=== PATIENT | male | born 1960 | race Caucasian/White ===

== ENCOUNTER 2021-02-28 22:59 | Inpatient (IN) | payer MEDICARE, SELFPAY ==
[2021-02-28 23:00] VITALS: BP 112/66; PULSE 100; RESP 32; TEMP 38; O2SAT 84; BMI 32.1
--- NOTE | 2021-02-28 23:05 | RAD_ITS ---
EXAM: XR CHEST, 1 VIEW CLINICAL INDICATION: sob TECHNIQUE: Frontal view of the chest. This report was created using [employer] report generation technology. COMPARISON: None. FINDINGS: LUNGS AND PLEURAL SPACES: Bilateral multilobar ill-defined airspace disease. No pneumothorax. No effusion. HEART: Unremarkable. Cardiac silhouette not enlarged. MEDIASTINUM: Central airways and mediastinal contour are unremarkable. BONES/JOINTS: Degenerative changes of the spine and acromioclavicular joints. SOFT TISSUES: Unremarkable. RAD/Chest 1 View (Portable) IMPRESSION: Bilateral multilobar pneumonia suspected. Electronically Signed: Aidan Bone MD at 0:19 EST Tel , Service support ,
--- NOTE | 2021-02-28 23:05 | EKG12_ITS ---
Test Reason : SOB Blood Pressure : / mmHG Vent. Rate : 094 BPM Atrial Rate : 094 BPM P-R Int : 168 ms QRS Dur : 090 ms QT Int : 342 ms P-R-T Axes : 029 -13 032 degrees QTc Int : 427 ms Normal sinus rhythm Normal ECG Confirmed by MICHAEL TAVERA, LENY ([id number]), book or script editor KARIN GUZMAN ([id number]) on 03/02/2021 1:28:41 PM Referred By: EDWARD Confirmed By:LENY RODRIGUEZ MD
--- NOTE | 2021-02-28 23:08 | ED.RN ---
pulse ox 82%,placed on 5 lnc to get pulse ox of 94%.
--- NOTE | 2021-02-28 23:13 | PCA ---
PT HAD NO EKG
--- NOTE | 2021-02-28 23:14 | EDS_ITS ---
HPI History of Present Illness Chief Complaint: Shortness of Breath Informant: patient and family Narrative Narrative: Presents increasing dyspnea today. Covid +2 days ago. Symptoms started 4 days ago reported fevers headache chills myalgias. Occasional vomiting diarrhea. Sick contacts with daughters were friend's kids who had Covid over . 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 Nonvaccinated. He reports Covid symptoms back in 2019 prior to testing. History of hypertension, diabetes, hypercholesterolemia, meningioma that is being followed. Remote tobacco history. 2 days ago went to urgent care chest x-ray noted bilateral pneumonia he was started on doxycycline. He got called with Covid results today being positive. Daughter reports she gave him 50 mg of prednisone yesterday and then again today. [facility] Medical History Diabetes Former smoker Hyperlipidemia Hypertension Home Medications bisoprolol-hydrochlorothiazide 1 tab PO DAILY 03/01/21 [History Last Taken Unknown] doxycycline monohydrate 100 mg PO BID 03/01/21 [History Last Taken Unknown] finasteride 5 mg PO DAILY 03/01/21 [History Last Taken Unknown] lisinopril 5 mg PO DAILY 03/01/21 [History Last Taken Unknown] metformin 1,000 mg PO BID 03/01/21 [History Last Taken Unknown] rosuvastatin 10 mg PO QHS 03/01/21 [History Last Taken Unknown] tamsulosin 0.4 mg PO DAILY 03/01/21 [History Last Taken Unknown] Allergy/AdvReac Type Severity Reaction Status Date / Time No Known Allergies Allergy Verified 02/28/21 23:02 Family History (Updated 03/01/21 @ 01:[address] Allan Allred MD) Other Cancer Diabetes Surgical History History of back surgery Hx of inguinal hernia repair Social History Smoking Status: Former smoker ROS ROS ED Constitutional Constitutional ED: Reports chills, fever(s) and sweats Eyes Eyes: Denies change in vision ENT ENT ED: Denies dysphagia or sore throat Cardiovascular Cardiovascular: Denies chest pain, leg edema, palpitations or racing heartbeat Respiratory/Chest Respiratory/Chest: Reports cough and dyspnea; Denies dyspnea on exertion Gastrointestinal Gastrointestinal: Reports diarrhea and nausea; Denies abdominal pain or vomiting Genitourinary Genitourinary ED: Denies dysuria, hematuria or urinary frequency Musculoskeletal Musculoskeletal: Denies back pain, extremity pain or neck pain Integumentary Denies rash or wounds Neurologic Neurologic: Reports headache(s); Denies paresthesias or weakness EXAM Physical Exam Const Vital Signs: 02/28/21 23:00 02/28/21 23:18 02/28/21 23:23 Temperature 100.4 F H Temperature Source Temporal Pulse Rate 100 94 Respiratory Rate 32 H 23 H Respiratory Effort Short of Breath Respiratory Depth Shallow Respiratory Pattern Irregular Blood Pressure 112/66 119/74 Blood Pressure Mean 81 89 Pulse Ox 84 98 99 Oxygen Delivery Method Room Air Nasal Cannula Nasal Cannula Oxygen Flow Rate (L/min) 5 Fraction of Inspired Oxygen (FIO2) 98 99 02/28/21 23:59 Temperature 100.4 F H Temperature Source Temporal Pulse Rate 91 Respiratory Rate 20 H Respiratory Effort Respiratory Depth Respiratory Pattern Blood Pressure 126/74 H Blood Pressure Mean 91 Pulse Ox 96 Oxygen Delivery Method Nasal Cannula Oxygen Flow Rate (L/min) 2 Fraction of Inspired Oxygen (FIO2) Positive well nourished and well developed Constitutional Narrative: Occasional coughing, nontoxic General Appearance ED: well developed and NAD HEENT Reports dry mucous membranes normocephalic and atraumatic Mouth ED: Yes dry mucous membranes Mouth: dry mucous membranes Eyes PERRL, EOMs intact bilaterally and conjunctivae normal General Eye ED: Yes normal appearance of both eyes Neck no lymphadenopathy and supple General: Negative for tenderness Chest Wall Chest: Negative for tenderness Resp normal respiratory effort and normal air movement Effort and Inspection: symmetric chest movement; Negative for respiratory distress Cardio regular rate, regular rhythm and no murmurs Peripheral Pulses: pulses 2+ throughout GI normal to inspection, nondistended, normoactive bowel sounds and non-tender Palpation: Negative for guarding or rebound tenderness present Back/Spine no CVA tenderness and no thoracic nor lumbar tenderness Extremity normal to inspection General Extremety ED: Negative for edema or tenderness General Extremity: Negative for edema Neuro oriented x3 and no sensory deficits noted Sensorium / Orientation: awake and alert Skin no rashes or lesions noted and no wounds MDM MDM MDM Narrative Medical decision making narrative: Patient low-grade fever, respiratory rate 32 on arrival. Sepsis labs were ordered. Reported positive testing from 2 days ago, they are unable to provide documentation. Will retest. Dry mucosal membranes, will give 500 cc fluid bolus. Tylenol ordered. Currently on 5 L oxygen at 95%. Chest x-ray labs are pending at this time. Imaging studies notes multifocal pneumonia changes. Laboratory studies normal white count hemoglobin 13.8 creatinine 1.04. Lymphocytes are low, CRP elevated 118. Lactic acid 2.9. Urine negative for infection. Cultures pending. His rapid Covid returned negative, however positive testing as an outpatient clinically consistent with Covid pneumonia. I did order for PCR testing. He was covered with dexamethasone. Blood glucose 217 in the lab. He is weaned down to 2 L oxygen at rest. Reports worsening symptoms with exertion. He is an antiviral candidate. I discussed with hospitalist Dr. Allred for admission for suspected Covid pneumonia with hypoxemia. Lab Data Attestation: I reviewed the patient's lab results. Labs: Laboratory Results - last 24 hr 02/28/21 02/28/21 02/28/21 23:20 23:20 23:20 WBC 7.9 RBC 4.31 L Hgb 13.8 Hct 39.2 L MCV 91.0 MCH 32.0 MCHC 35.2 RDW Std Deviation 39.4 RDW Coeff of Eh 11.9 Plt Count 187 MPV 11.1 Immature Gran % (Auto) 1.500 H Neut % (Auto) 81.2 H Lymph % (Auto) 10.7 L [place] % (Auto) 6.5 Eos % (Auto) 0.0 Baso % (Auto) 0.1 Absolute Neuts (auto) 6.4 Absolute Lymphs (auto) 0.84 Nucleated RBC % 0 Differential Comment SCANNED PT Cancelled INR Cancelled APTT Cancelled Sodium 134 L Potassium 4.5 Chloride 97 L Carbon Dioxide 29.0 Anion Gap 8 BUN 22 H Creatinine 1.04 Estim Creat Clear Calc 86.72 Est GFR (MDRD) Af Amer 93 Est GFR (MDRD) Non-Af 77 BUN/Creatinine Ratio 21.2 H Glucose 217 H Lactic Acid Calcium 8.5 Total Bilirubin 0.70 AST 47 H ALT 29 Alkaline Phosphatase 78 C-React Prot Ext Range 118.00 H Total Protein 7.3 Albumin 2.7 L Globulin 4.6 H Albumin/Globulin Ratio 0.6 L Urine Color Urine Clarity Urine pH Ur Specific [place] Urine Protein Urine Glucose (UA) Urine Ketones Urine Occult Blood Urine Nitrite Urine Bilirubin Urine Urobilinogen Ur Leukocyte Esterase Urine RBC Urine WBC Ur Squamous Epith Cells Urine Bacteria Urine Mucus 02/28/21 03/01/21 03/01/21 23:20 00:00 00:05 WBC RBC Hgb Hct MCV MCH MCHC RDW Std Deviation RDW Coeff of Eh Plt Count MPV Immature Gran % (Auto) Neut % (Auto) Lymph % (Auto) [place] % (Auto) Eos % (Auto) Baso % (Auto) Absolute Neuts (auto) Absolute Lymphs (auto) Nucleated RBC % Differential Comment PT 12.3 INR 1.0 APTT 31.6 Sodium Potassium Chloride Carbon Dioxide Anion Gap BUN Creatinine Estim Creat Clear Calc Est GFR (MDRD) Af Amer Est GFR (MDRD) Non-Af BUN/Creatinine Ratio Glucose Lactic Acid 2.9 H* Calcium Total Bilirubin AST ALT Alkaline Phosphatase C-React Prot Ext Range Total Protein Albumin Globulin Albumin/Globulin Ratio Urine Color Yellow Urine Clarity Clear Urine pH 5.0 Ur Specific [place] 1.015 Urine Protein 100 H Urine Glucose (UA) Normal Urine Ketones 5 H Urine Occult Blood 50 H Urine Nitrite Negative Urine Bilirubin 1 H Urine Urobilinogen 1 H Ur Leukocyte Esterase Negative Urine RBC 0-5 SEEN Urine WBC 0 SEEN Ur Squamous Epith Cells 0 SEEN Urine Bacteria 1+ Urine Mucus 0 SEEN Radiography Diagnostic Testing: Clinical Impression(s) from Imaging Studies Chest X-Ray 02/28/21 23:05 IMPRESSION: Bilateral multilobar pneumonia suspected. Electronically Signed: Aidan Bone MD at 0:19 EST Tel , Service support , EKG Initial EKG: Attestation: I personally reviewed and interpreted this EKG as follows: Comments: Sinus rhythm 94, no ST changes. Discharge Plan Triage Chief Complaint: Shortness of Breath ED Provider: Ford Falcon Dx/Rx/DC Orders Clinical Impression: Suspected COVID-19 virus infection, Pneumonia, Hypoxemia Primary Care Provider: Clint Horton Disposition Disposition: Acute Care Hospital Discharge Location: Other Acute Care Hospital Discharge Date/Time: 03/01/21 01:27
[2021-02-28 23:18] VITALS: O2SAT 5; O2SAT 98
[2021-02-28 23:23] VITALS: BP 119/74; PULSE 94; RESP 23; O2SAT 99
[2021-02-28 23:31] LABS: Absolute Lymphocyte Count 0.84 X10^3/uL (0.83-4.51); Absolute Neutrophil Count 6.4 X10^3/uL (2.0-7.7); Basophil# 0.01 X10^3/uL; Basophil% 0.1 % (0-1); Hematocrit 39.2 % (40-54); Hemoglobin 13.8 g/dL (13.0-16.5); Lymphocyte # 0.84 X10^3/ul (0.83-4.51); Lymphocyte % 10.7 % (19-41); Mean Corp Hgb Conc 35.2 g/dL (32-36); Mean Platelet Vol. 11.1 fl (6.2-12.0); Monocyte# 0.51 X10^3/uL; Monocyte% 6.5 % (0-10); NRBC Flagged by Analyzer 0 % (0-5); Neutrophil # 6.38 X10^3/uL (2.7-7.7); Neutrophil % 81.2 % (47-70); POSITIVE MORPHOLOGY YES; Platelet Count 187 K/mm3 (150-450); RBC Distribution Width CV 11.9 % (11.6-14.6); RBC Distribution Width SD 39.4 fl (35.1-43.9); Red Blood Count 4.31 M/mm3 (4.6-6.2); White Blood Count 7.9 K/mm3 (4.4-11.0)
[2021-02-28 23:49] LABS: Differential Indicated SCAN CRITERIA MET
[2021-02-28] MEDS: dexAMETHasone 4 MG Tablet 6 MG PO (23:53)
[2021-02-28] MEDS: Acetaminophen 325 MG Tablet 650 MG PO (23:53)
[2021-02-28 23:59] VITALS: BP 126/74; PULSE 91; RESP 20; TEMP 38; O2SAT 96
[2021-02-28 23:59] LABS: ALB/GLOB Ratio 0.6 RATIO (0.9-2.4); AST(SGOT) 47 U/L (15-37); Alanine Aminotransfer ALT/SGPT 29 U/L (16-61); Albumin, Serum 2.7 g/dL (3.2-5.0); Alkaline Phosphatase 78 U/L (45-117); Anion Gap 8 (5-15); BUN 22 mg/dL (7-18); BUN/Creat Ratio 21.2 RATIO (10-20); Calcium,Total 8.5 mg/dL (8.5-10.1); Chloride 97 mmol/L (98-107); Creatinine, Serum 1.04 mg/dL (0.70-1.30); EST Glomerular Filtration Rate 77 mL/min (>60); Est Glom Filt Rate - Afr Amer 93 mL/min (>60); Estimated Creatinine Clearance 86.72 ml/min; Globulin 4.6 g/dL (2.2-4.2); Glucose 217 mg/dL (74-106); Potassium 4.5 mmol/L (3.5-5.1); Protein, Total 7.3 g/dL (6.4-8.2); Sodium Level 134 mmol/L (136-145)
[2021-03-01] VITALS (15 sets, daily range): BP systolic 108–127; BP diastolic 71–83; PULSE 65–83; RESP 14–24; TEMP 35.9–38.2; O2SAT 85–96; BMI 25.4
[2021-03-01 00:01] LABS: Lactic Acid 2.9 mmol/L (0.4-1.9)
[2021-03-01 00:11] LABS: Differential Comment SCANNED
[2021-03-01 00:15] LABS: Mucous, Urine 0 SEEN /hpf (<or=2+); Squamous Epithelial Cells - UA 0 SEEN /hpf (0-5); White Blood Cells 0 SEEN /hpf (0-5)
[2021-03-01 00:18] LABS: Color, Urine Yellow (Yellow); Glucose, Dipstick Normal (Normal); Ketone-Dipstick 5 mg/dl (Negative); Leukocyte Esterase-Dipstick Negative /ul (Negative); Nitrite-Dipstick Negative (Negative); Occult Blood-Urine 50 /ul (Negative); Protein-Dipstick 100 mg/dl (Negative); Specific Gravity, Urine 1.015 (1.002-1.030); Urine Clarity Clear (Clear); Urine Urobilinogen 1 mg/dl (Normal)
[2021-03-01 00:24] LABS: Urine Bilirubin Dipstick 1 mg/dL (Negative)
[2021-03-01 00:25] LABS: Prothrombin Time (Protime)PT. 12.3 SECONDS (11.7-14.9)
[2021-03-01 00:26] LABS: Partial Thromboplast Time 31.6 Seconds (24.1-36.2)
[2021-03-01 00:28] LABS: Bacteria 1+ /hpf (None Seen); Red Blood Cells-Urine 0-5 SEEN /hpf (0-5)
--- NOTE | 2021-03-01 00:37 | PCM.HP.STD ---
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 Associated with symptom is a productive cough with clear and [place] sputum. Further he reports fatigue. He has anorexia on and off. He denies anosmia or dysgeusia. He reports a fever with a temperature of about 102.7 at home. He reports chills. Per family at times patient is not a coherent. He has had malaise oxygen saturation of about 74% at home. He was at an urgent care 2-day before presentation. He was diagnosed with pneumonia and was started on a prednisone; dicyclomine and breathing treatments. A Covid test was done at the urgent care. Twenty-four hours after he went to the urgent care at a positive Covid results was called to patient. Patient is unvaccinated against COVID-19 virus. REPLACED BY [facility] Medical History Diabetes Former smoker Hyperlipidemia Hypertension Home Medications bisoprolol-hydrochlorothiazide 1 tab PO DAILY 03/01/21 [History Last Taken Unknown] doxycycline monohydrate 100 mg PO BID 03/01/21 [History Last Taken Unknown] finasteride 5 mg PO DAILY 03/01/21 [History Last Taken Unknown] lisinopril 5 mg PO DAILY 03/01/21 [History Last Taken Unknown] metformin 1,000 mg PO BID 03/01/21 [History Last Taken Unknown] rosuvastatin 10 mg PO QHS 03/01/21 [History Last Taken Unknown] tamsulosin 0.4 mg PO DAILY 03/01/21 [History Last Taken Unknown] Allergy/AdvReac Type Severity Reaction Status Date / Time No Known Allergies Allergy Verified 02/28/21 23:02 Family History Other Cancer Diabetes Surgical History History of back surgery Hx of inguinal hernia repair Social History Smoking Status: Former smoker ROS ROS Narrative Constitutional: Reports fever, chills, fatigue, anorexia (on and off). Denies change in weight Eyes: Denies blurry vision, change in eye color, change in vision, discharge from eye(s), double vision, erythema, eye pain, loss of vision or other HEENT: Denies abnormal hearing, dysphagia, ear pain, epistaxis, headache(s), hearing loss, nasal congestion, nasal discharge, post nasal drip, sinus pressure, sore throat or other Cardiovascular: Denies chest pain or palpitations. Respiratory/Chest: Reports shortness of breath. Reports productive cough. Reports wheezes. Gastrointestinal: Denies abdominal pain, coffee ground emesis, constipation, diarrhea, dyspepsia, hematemesis, hematochezia, loose stools, melena, nausea, vomiting or other Genitourinary: Denies burning urination, difficulty urinating, dysuria, hematuria, nocturia, urinary frequency, urinary hesitancy, urinary incontinence, urinary urgency or other Musculoskeletal: Denies arthralgias, back pain, joint pain, joint stiffness, joint swelling, myalgias, neck pain or other Neurologic: Reports confusion. Denies abnormal gait, abnormal speech, disequilibrium, dizziness, focal weakness, headache(s), numbness, paresthesias, seizure-like activity, seizures, syncope, tingling, tremor(s) or other Psychiatric: Denies anxiety, depression, homicidal ideation, suicidal ideation or other Endocrinology: Denies change in body appearance, cold intolerance, excessive sweating, heat intolerance, polydipsia, polyuria or other Hematologic/Lymphatic: Denies anemia, easy bleeding, easy bruising, lymphadenopathy or other Integumentary: Denies rashes Allergic/Immunologic: Denies rhinitis, hives, eczema, asthma or other Vital Signs Vital Signs Vital Signs: 02/28/21 23:00 02/28/21 23:18 02/28/21 23:23 Temperature 100.4 F H Temperature Source Temporal Pulse Rate 100 94 Respiratory Rate 32 H 23 H Respiratory Effort Short of Breath Respiratory Depth Shallow Respiratory Pattern Irregular Blood Pressure 112/66 119/74 Blood Pressure Mean 81 89 Pulse Ox 84 98 99 Oxygen Delivery Method Room Air Nasal Cannula Nasal Cannula Oxygen Flow Rate (L/min) 5 Fraction of Inspired Oxygen (FIO2) 98 99 02/28/21 23:59 Temperature 100.4 F H Temperature Source Temporal Pulse Rate 91 Respiratory Rate 20 H Respiratory Effort Respiratory Depth Respiratory Pattern Blood Pressure 126/74 H Blood Pressure Mean 91 Pulse Ox 96 Oxygen Delivery Method Nasal Cannula Oxygen Flow Rate (L/min) 2 Fraction of Inspired Oxygen (FIO2) Weight Weight: 113.398 kg Body Mass Index (BMI) 32.1 Physical Exam Narrative Physical exam: General: Well-nourished, well-developed. Head: Normocephalic, atraumatic, no tenderness Eyes: PERRLA, EOMI ENT, no trauma, moist mucous membranes, no rhinorrhea Neck: Nontender, full range of motion CVS: Regular rate and rhythm. S1-S2 present. No murmur, gallop or rub. Respiratory : crackles bilaterally, chest wall nontender, no wheezing Abdomen: Soft, nontender, nondistended, normal bowel sounds, no masses : Deferred Back: Nontender, no CVA tenderness, no midline spinal tenderness, deformities, step-offs Extremities: Nontender full range of motion, no trauma Skin: Normal color, no trauma, abrasions Neuro: Alert, oriented, cranial nerves II through XII grossly intact. Psychiatry: Normal mood. Normal affect. Not depressed. Not anxious. Results Lab / Micro Data Result Diagrams: 02/28/21 23:20 02/28/21 23:20 Labs: Laboratory Results - last 24 hr 02/28/21 23:20: WBC 7.9, RBC 4.31 L, Hgb 13.8, Hct 39.2 L, MCV 91.0, MCH 32.0, MCHC 35.2, RDW Std Deviation 39.4, RDW Coeff of Eh 11.9, Plt Count 187, MPV 11.1, Immature Gran % (Auto) 1.500 H, Neut % (Auto) 81.2 H, Lymph % (Auto) 10.7 L, [place] % (Auto) 6.5, Eos % (Auto) 0.0, Baso % (Auto) 0.1, Absolute Neuts (auto) 6.4, Absolute Lymphs (auto) 0.84, Nucleated RBC % 0, Differential Comment SCANNED 02/28/21 23:20: PT Cancelled, INR Cancelled, APTT Cancelled 02/28/21 23:20: Sodium 134 L, Potassium 4.5, Chloride 97 L, Carbon Dioxide 29.0, Anion Gap 8, BUN 22 H, Creatinine 1.04, Estim Creat Clear Calc 86.72, Est GFR (MDRD) Af Amer 93, Est GFR (MDRD) Non-Af 77, BUN/Creatinine Ratio 21.2 H, Glucose 217 H, Calcium 8.5, Total Bilirubin 0.70, AST 47 H, ALT 29, Alkaline Phosphatase 78, C-React Prot Ext Range 118.00 H, Total Protein 7.3, Albumin 2.7 L, Globulin 4.6 H, Albumin/Globulin Ratio 0.6 L 02/28/21 23:20: Lactic Acid 2.9 H* 03/01/21 00:00: PT 12.3, INR 1.0, APTT 31.6 03/01/21 00:05: Urine Color Yellow, Urine Clarity Clear, Urine pH 5.0, Ur Specific [place] 1.015, Urine Protein 100 H, Urine Glucose (UA) Normal, Urine Ketones 5 H, Urine Occult Blood 50 H, Urine Nitrite Negative, Urine Bilirubin 1 H, Urine Urobilinogen 1 H, Ur Leukocyte Esterase Negative, Urine RBC 0-5 SEEN, Urine WBC 0 SEEN, Ur Squamous Epith Cells 0 SEEN, Urine Bacteria 1+, Urine Mucus 0 SEEN Micro: Microbiology 02/28/21 23:34 Nasal Secretion SARS-CoV-2 Antigen (Rapid) - Final Radiology Impression Chest X-Ray 02/28/21 23:05 IMPRESSION: Bilateral multilobar pneumonia suspected. Electronically Signed: Aidan Bone MD at 0:19 EST Tel , Service support , Assessment & Plan Assessment/Plan (1) Acute respiratory failure due to COVID-19: PLAN: Acute hypoxemic respiratory failure secondary to SARS- COV 2 With oxygen saturation of 74% at home. Requiring supplemental oxygen in the emergency department. With tachypnea with highest respiratory rate of 32 at the emergency department. Will stop Home prednisone that was recently started. Received Decadron at the emergency department. Decadron continued. We will get a procalcitonin. Rapid Covid antigen at the emergency department was negative. So PCR Covid test was ordered at the ED. Review of community records show that on 02/26/2021 Covid PCR was done which returned positive on 02/27/2021. Creatinine clearance is more than 30. AST is mildly elevated at 47. Liver biochemistry is appropriate to start remdesivir. Remdesivir ordered. Supplemental oxygenation continued. And has the precautions ordered. Chest x-ray interpreted by myself and radiology showed bilateral multilobar pneumonia. Tylenol for fever Mucinex ordered Review of labs showed normal white counts but with bandemia of 1.5%; neutrophilia of 81.2%; and lymphopenia of 10.7%. Noted to have mild hyponatremia likely from pulmonary disease. Trend CBC and CMP Lactic acidosis Lactic acid of 2.9 likely secondary to Metformin use and hypoxemia. Trend. Cover treatment as above. Diabetes mellitus Patient with hyperglycemia on presentation Home Metformin held. Accu-Chek QA CHS with correction scale insulin ordered. Basal insulin ordered. Lisinopril continued. Hypertension Blood pressure is not within goal Lisinopril; beta-blockers and hydrochlorothiazide continued continued. Trend blood pressure and adjust blood pressure medications. Hyperlipidemia Rosuvastatin continued DVT prophylaxis: Subcutaneous Lovenox ordered Charges/Coding Visit Charges Inpatient E&M: 96907 Init Hosp L3
[2021-03-01 01:56] LABS: Bedside Glucose 188 mg/dL (70-110)
--- NOTE | 2021-03-01 01:56 | NURSING ---
PT'S DTR ABRAHAN'S UPDATED ON PT'S STAUTUS/ADMISSION.
[2021-03-01 02:01] LABS: Procalcitonin 0.14 ng/mL (0.00-0.09)
[2021-03-01 02:17] LABS: Probe Check PASS; Specimen Processing Control PASS
[2021-03-01] MEDS: guaiFENesin 1,200 MG Tablet 1200 MG PO ×2 (02:32→22:16)
[2021-03-01 03:27] LABS: Reflex Lactate? Y
[2021-03-01 04:04] LABS: Absolute Neutrophil Count 6.2 X10^3/uL (2.0-7.7); Basophil# 0.01 X10^3/uL; Basophil% 0.1 % (0-1); Hematocrit 35.7 % (40-54); Hemoglobin 12.6 g/dL (13.0-16.5); Lymphocyte % 8.1 % (19-41); Mean Corp Hgb Conc 35.3 g/dL (32-36); Mean Corpuscular Hgb 31.9 pg (27.0-32.0); Mean Corpuscular Volume 90.4 fL (80-94); Mean Platelet Vol. 10.6 fl (6.2-12.0); Monocyte# 0.51 X10^3/uL; Monocyte% 6.9 % (0-10); NRBC Flagged by Analyzer 0 % (0-5); Neutrophil # 6.23 X10^3/uL (2.7-7.7); Neutrophil % 84.2 % (47-70); POSITIVE DIFFERENTIAL YES; POSITIVE MORPHOLOGY YES; Platelet Count 162 K/mm3 (150-450); RBC Distribution Width CV 11.6 % (11.6-14.6); RBC Distribution Width SD 38.6 fl (35.1-43.9); Red Blood Count 3.95 M/mm3 (4.6-6.2); White Blood Count 7.4 K/mm3 (4.4-11.0)
[2021-03-01 04:20] LABS: Differential Indicated SCAN CRITERIA MET
[2021-03-01 04:30] LABS: ALB/GLOB Ratio 0.6 RATIO (0.9-2.4); AST(SGOT) 39 U/L (15-37); Alanine Aminotransfer ALT/SGPT 27 U/L (16-61); Albumin, Serum 2.4 g/dL (3.2-5.0); Alkaline Phosphatase 68 U/L (45-117); Anion Gap 9 (5-15); BUN 20 mg/dL (7-18); BUN/Creat Ratio 25.2 RATIO (10-20); Calcium,Total 7.5 mg/dL (8.5-10.1); Chloride 100 mmol/L (98-107); Creatinine, Serum 0.79 mg/dL (0.70-1.30); EST Glomerular Filtration Rate 106 mL/min (>60); Est Glom Filt Rate - Afr Amer 128 mL/min (>60); Estimated Creatinine Clearance 114.17 ml/min; Globulin 4.1 g/dL (2.2-4.2); Glucose 247 mg/dL (74-106); Potassium 4.2 mmol/L (3.5-5.1); Protein, Total 6.5 g/dL (6.4-8.2); Sodium Level 135 mmol/L (136-145)
[2021-03-01 04:35] LABS: Atypical Lymphocyte RARE %; Differential Comment SCANNED
[2021-03-01] MEDS: Acetaminophen 325 MG Tablet 650 MG PO (06:27)
--- NOTE | 2021-03-01 08:32 | PCS.PANDOC ---
PANDEMIC DOCUMENTATION INITIATED: Date: 11/06/2020 Time: 190
[2021-03-01] MEDS: Tamsulosin HCl 0.4 MG Capsule PO (08:33)
[2021-03-01] MEDS: hydroCHLOROthiazide 6.25mg TAB 6.25 MG PO (08:33)
[2021-03-01] MEDS: Lisinopril 5 MG Tablet PO (08:33)
[2021-03-01] MEDS: Bisoprolol Fumarate 5 MG Tablet PO (08:33)
[2021-03-01] MEDS: dexAMETHasone 2 MG TABLET 6 MG PO (08:34)
[2021-03-01] MEDS: 0.9% Saline Lock 10 ML Syringe IV ×2 (08:34→22:16)
[2021-03-01] MEDS: Finasteride 5 MG Tablet PO (08:34)
[2021-03-01] MEDS: Enoxaparin 30 MG/0.3 ML Syringe SC ×2 (08:34→22:16)
[2021-03-01] MEDS: Insulin Lispro 100 UNIT/ML INSULN.PEN SC ×4 (08:42→22:19)
[2021-03-01 08:50] LABS: Bedside Glucose 300 mg/dL (70-110)
[2021-03-01 12:00] LABS: Bedside Glucose 325 mg/dL (70-110)
[2021-03-01 16:10] LABS: Bedside Glucose 309 mg/dL (70-110)
--- NOTE | 2021-03-01 16:56 | PN.HOSP_ITS ---
Subjective Subjective Follow-up for acute respiratory failure/acute COVID-19 pneumonia: Patient was seen and examined. He is currently on 3 L of oxygen. Denied any fever chills or diarrhea. Objective Data Objective Data Vital Signs: Vital Signs Temp Pulse Resp BP Pulse Ox 97 F L 73 20 H 113/79 94 03/01/21 16:01 03/01/21 16:01 03/01/21 16:01 03/01/21 16:01 03/01/21 16:01 Oxygen Flow Rate (L/min) 3 Oxygen Delivery Method Nasal Cannula Weight: 89.7 kg Body Mass Index (BMI) 25.4 Intake & Output: Intake and Output for Last 24 Hours 02/27/21 02/28/21 03/01/21 23:59 23:59 23:59 Intake Total 1386 / 1386 Balance 1386 / 1386 Medical Nutrition Assessment Dietitian: Malnutrition Criteria Met Start: 03/01/21 15:00 Freq: Status: Active Protocol: Document 03/01/21 15:00 RMA (Rec: 03/01/21 15:00 RMA [id number]) Nutrition Malnutrition Evidence of Malnutrition Exists Yes Malnutrition (severe): Acute Illness/Injury Evidenced By Suboptimal Energy Intake ( Severe),Weight Loss (Severe) Clinical Problem Acute Disease or Injury Related Malnutrition Etiology Severe protein-calorie malnutrition in the context of acute illness 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 Status Active Problem Recommendation Dietitian Recommendations/Changes Will change diet to 2000 calorie; consistent carbohydrate. Will d/c ensure enlive w/ medpass. Will add 120ml glucerna shake TID w/ meals. Liberalize diet and add ONS as needed to prevent further wt loss if PO does not improve at meals. Lab / Micro Data Result Diagrams: 03/01/21 03:54 03/01/21 03:54 Labs: Laboratory Results - last 24 hr 02/28/21 23:20: WBC 7.9, RBC 4.31 L, Hgb 13.8, Hct 39.2 L, MCV 91.0, MCH 32.0, MCHC 35.2, RDW Std Deviation 39.4, RDW Coeff of Eh 11.9, Plt Count 187, MPV 11 .1, Immature Gran % (Auto) 1.500 H, Neut % (Auto) 81.2 H, Lymph % (Auto) 10.7 L, [place] % (Auto) 6.5, Eos % (Auto) 0.0, Baso % (Auto) 0.1, Absolute Neuts (auto) 6.4, Absolute Lymphs (auto) 0.84, Nucleated RBC % 0, Differential Comment SCANNED 02/28/21 23:20: PT Cancelled, INR Cancelled, APTT Cancelled 02/28/21 23:20: Sodium 134 L, Potassium 4.5, Chloride 97 L, Carbon Dioxide 29.0, Anion Gap 8, BUN 22 H, Creatinine 1.04, Estim Creat Clear Calc 86.72, Est GFR (MDRD) Af Amer 93, Est GFR (MDRD) Non-Af 77, BUN/Creatinine Ratio 21.2 H, Glucose 217 H, Calcium 8.5, Total Bilirubin 0.70, AST 47 H, ALT 29, Alkaline Phosphatase 78, C-React Prot Ext Range 118.00 H, Total Protein 7.3, Albumin 2.7 L, Globulin 4.6 H, Albumin/Globulin Ratio 0.6 L 02/28/21 23:20: Lactic Acid 2.9 H* 02/28/21 23:20: Procalcitonin 0.14 H 03/01/21 00:00: PT 12.3, INR 1.0, APTT 31.6 03/01/21 00:05: Urine Color Yellow, Urine Clarity Clear, Urine pH 5.0, Ur Specific [place] 1.015, Urine Protein 100 H, Urine Glucose (UA) Normal, Urine Ketones 5 H, Urine Occult Blood 50 H, Urine Nitrite Negative, Urine Bilirubin 1 H, Urine Urobilinogen 1 H, Ur Leukocyte Esterase Negative, Urine RBC 0-5 SEEN, Urine WBC 0 SEEN, Ur Squamous Epith Cells 0 SEEN, Urine Bacteria 1+, Urine Mucus 0 SEEN 03/01/21 00:35: COVID-19 (DANIEL) Positive 03/01/21 01:43: POC Glucose 188 H 03/01/21 03:54: WBC 7.4, RBC 3.95 L, Hgb 12.6 L, Hct 35.7 L, MCV 90.4, MCH 31.9, MCHC 35.3, RDW Std Deviation 38.6, RDW Coeff of Eh 11.6, Plt Count 162, MPV 10.6, Immature Gran % (Auto) 0.700, Neut % (Auto) 84.2 H, Lymph % (Auto) 8.1 L, [place] % (Auto) 6.9, Eos % (Auto) 0.0, Baso % (Auto) 0.1, Absolute Neuts (auto) 6.2, Absolute Lymphs (auto) 0.60 L, Nucleated RBC % 0, Differential Comment SCANNED, Atypical Lymphocytes RARE 03/01/21 03:54: Sodium 135 L, Potassium 4.2, Chloride 100, Carbon Dioxide 26.0, Anion Gap 9, BUN 20 H, Creatinine 0.79, Estim Creat Clear Calc 114.17, Est GFR (MDRD) Af Amer 128, Est GFR (MDRD) Non-Af 106, BUN/Creatinine Ratio 25.2 H, Glucose 247 H, Calcium 7.5 L, Total Bilirubin 0.70, AST 39 H, ALT 27, Alkaline Phosphatase 68, Total Protein 6.5, Albumin 2.4 L, Globulin 4.1, Albumin/Globulin Ratio 0.6 L 03/01/21 03:54: Lactic Acid 1.0 03/01/21 08:25: POC Glucose 300 H 03/01/21 11:44: POC Glucose 325 H 03/01/21 15:58: POC Glucose 309 H Micro: Microbiology 02/28/21 23:34 Nasal Secretion SARS-CoV-2 Antigen (Rapid) - Final Radiography Diagnostic Testing: Radiology Impression Chest X-Ray 02/28/21 23:05 IMPRESSION: Bilateral multilobar pneumonia suspected. Electronically Signed: Aidan Bone MD at 0:19 EST Tel , Service support , Physical Exam Narrative Physical exam: General: Alert, Oriented x3, Cooperative, No apparent distress, Well developed HEENT: Atraumatic Oral: Moist Mucosa Neck: Supple Lungs: Diminished to auscultation Cardiovascular: HS I+II, regular, no murmurs Abdomen: Bowel Sounds Present, Soft, Non Tender Assessment & Plan Assessment/Plan (1) Acute respiratory failure with hypoxia: (2) Pneumonia due to COVID-19 virus: (3) Lactic acidosis: PLAN: 1. Acute hypoxic respiratory failure secondary to acute COVID-19 pneumonia Patient is currently on 3 L of oxygen He is unvaccinated Continue on Decadron and remdesivir 2. Lactic acidosis secondary to #1 3. Type II DM, blood sugars uncontrolled, continue to hold Metformin Continue on insulin 20 units nightly with insulin sliding scale 4. Hypertension, controlled continue on hydrochlorothiazide, lisinopril Charges/Coding Visit Charges Inpatient E&M: 49205 Subs Hosp L2
[2021-03-01] MEDS: Atorvastatin Calcium 20 MG Tablet PO (22:16)
[2021-03-01 22:35] LABS: Bedside Glucose 279 mg/dL (70-110)
[2021-03-02] VITALS (17 sets, daily range): BP systolic 108–126; BP diastolic 64–79; PULSE 54–84; RESP 16–23; TEMP 35.7–36.3; O2SAT 85–97
[2021-03-02] MEDS: 0.9% Saline Lock 10 ML Syringe IV ×3 (01:44→22:19)
[2021-03-02] MEDS: Acetaminophen 325 MG Tablet 650 MG PO ×2 (03:26→22:19)
[2021-03-02] MEDS: Insulin Lispro 100 UNIT/ML INSULN.PEN SC ×4 (07:03→22:30)
[2021-03-02 07:14] LABS: Absolute Lymphocyte Count 0.97 X10^3/uL (0.83-4.51); Absolute Neutrophil Count 7.4 X10^3/uL (2.0-7.7); Basophil# 0.03 X10^3/uL; Basophil% 0.3 % (0-1); Eosinophil# 0.24 X10^3/uL; Eosinophils% 2.5 % (0-5); Hematocrit 38.2 % (40-54); Lymphocyte # 0.97 X10^3/ul (0.83-4.51); Lymphocyte % 10.1 % (19-41); Mean Corpuscular Hgb 31.6 pg (27.0-32.0); Mean Corpuscular Volume 92.7 fL (80-94); Mean Platelet Vol. 11.1 fl (6.2-12.0); Monocyte# 0.91 X10^3/uL; Monocyte% 9.5 % (0-10); NRBC Flagged by Analyzer 0 % (0-5); Neutrophil # 7.35 X10^3/uL (2.7-7.7); Neutrophil % 76.6 % (47-70); POSITIVE MORPHOLOGY YES; Platelet Count 196 K/mm3 (150-450); RBC Distribution Width CV 11.7 % (11.6-14.6); RBC Distribution Width SD 39.7 fl (35.1-43.9); Red Blood Count 4.12 M/mm3 (4.6-6.2); White Blood Count 9.6 K/mm3 (4.4-11.0)
[2021-03-02 07:25] LABS: Differential Indicated SCAN CRITERIA MET
[2021-03-02 07:25] LABS: Bedside Glucose 219 mg/dL (70-110)
[2021-03-02 07:43] LABS: ALB/GLOB Ratio 0.5 RATIO (0.9-2.4); AST(SGOT) 27 U/L (15-37); Alanine Aminotransfer ALT/SGPT 27 U/L (16-61); Albumin, Serum 2.2 g/dL (3.2-5.0); Alkaline Phosphatase 65 U/L (45-117); Anion Gap 5 (5-15); BUN 28 mg/dL (7-18); BUN/Creat Ratio 36.7 RATIO (10-20); Calcium,Total 7.9 mg/dL (8.5-10.1); Chloride 104 mmol/L (98-107); Creatinine, Serum 0.76 mg/dL (0.70-1.30); EST Glomerular Filtration Rate 111 mL/min (>60); Est Glom Filt Rate - Afr Amer 134 mL/min (>60); Estimated Creatinine Clearance 118.67 ml/min; Globulin 4.1 g/dL (2.2-4.2); Glucose 226 mg/dL (74-106); Potassium 4.5 mmol/L (3.5-5.1); Protein, Total 6.3 g/dL (6.4-8.2); Sodium Level 138 mmol/L (136-145)
[2021-03-02 07:51] LABS: Reactive Lymphocyte 1+
[2021-03-02] MEDS: guaiFENesin 1,200 MG Tablet 1200 MG PO ×2 (09:51→22:18)
[2021-03-02] MEDS: dexAMETHasone 2 MG TABLET 6 MG PO (09:51)
[2021-03-02] MEDS: Tamsulosin HCl 0.4 MG Capsule PO (09:51)
[2021-03-02] MEDS: Finasteride 5 MG Tablet PO (09:52)
[2021-03-02] MEDS: Bisoprolol Fumarate 5 MG Tablet PO (09:52)
[2021-03-02] MEDS: Lisinopril 5 MG Tablet PO (09:52)
[2021-03-02] MEDS: hydroCHLOROthiazide 6.25mg TAB 6.25 MG PO (09:52)
[2021-03-02] MEDS: Enoxaparin 30 MG/0.3 ML Syringe SC ×2 (09:52→22:18)
--- NOTE | 2021-03-02 10:15 | CASEMGMT ---
EMELY TAVAREZ called patient in room for initial transition planning/care coordination assessment. RN DAYSI introduced self and role at [facility]. Patient lying in bed, alert and oriented. Patient willing to participate in assessment and is able to answer all questions appropriately. Care providers, pharmacy, and demographics verified. Patient wishes to discharge home, denies need for home health at this time. Patient states he has no further needs or concerns at this time. CM to follow for discharge planning needs that may arise. PCP: [facility] Specialists: none [facility] Insurance: Uninsured Covid Prescription Benefit: none Living Will/HPOA: none LNOK: daughter Living Arrangements: Patient lives with daughter and her family that have been staying with him for 2 years. Patient lives in a 2 story home. Patient states he is independent and able to ambulate stairs. Daughter and granddaughter were sick with covid 2-3 weeks ago. Transportation: self/daughter DME/HHC: Patient states she has shower chair, raised toilet, cane, walker, and grab bars. Patient states he has no preferences for DME. Will monitor for home oxygen Disposition Plan: Patient to discharge home with family support and follow-up plans in place. Marisol HAWK, RN, CM
--- NOTE | 2021-03-02 10:26 | CASEMGMT ---
Green sheet on chart for home oxygen, if pt qualifies. John HAN CM
--- NOTE | 2021-03-02 10:58 | NURSING ---
pt walked to bathroom, spo2 dropped to 84% on 5L. Increased O2 to 13L to recover to 90%. Decreased O2 to 7L NC satting 91-92%.
[2021-03-02 11:05] LABS: Bedside Glucose 312 mg/dL (70-110)
--- NOTE | 2021-03-02 12:45 | CASEMGMT ---
SW spoke with patient as he is self pay. Patient states he is doing fine paying for medications. He has a PCP that he sees regularly. He denied need for any resources. SW did ask if he would need O2 at discharge would the cost of $160 per month be affordable. Patient said that is manageable. Ni Carpenter [employer]OPE W[employer]A
--- NOTE | 2021-03-02 15:31 | PN.HOSP_ITS ---
Subjective Subjective Follow-up for acute respiratory failure/acute COVID-19 pneumonia: Patient was seen and examined. He is currently on 7 L of oxygen. Denies any new complaints Objective Data Objective Data Vital Signs: Vital Signs Temp Pulse Resp BP Pulse Ox 97.3 F L 70 16 108/73 95 03/02/21 14:10 03/02/21 15:00 03/02/21 14:10 03/02/21 14:10 03/02/21 14:10 Oxygen Flow Rate (L/min) 7 Oxygen Delivery Method Nasal Cannula Weight: 89.7 kg Body Mass Index (BMI) 25.4 Intake & Output: Intake and Output for Last 24 Hours 02/28/21 03/01/21 03/02/21 23:59 23:59 23:59 Intake Total 1806 / 2106 1270 / 1270 Output Total 350 / 350 Balance 1806 / 2106 920 / 920 Medical Nutrition Assessment Dietitian: Malnutrition Criteria Met Start: 03/01/21 15:00 Freq: Status: Active Protocol: Document 03/01/21 15:00 RMA (Rec: 03/01/21 15:00 RMA [id number]) Nutrition Malnutrition Evidence of Malnutrition Exists Yes Malnutrition (severe): Acute Illness/Injury Evidenced By Suboptimal Energy Intake ( Severe),Weight Loss (Severe) Clinical Problem Acute Disease or Injury Related Malnutrition Etiology Severe protein-calorie malnutrition in the context of acute illness related to poor appetite 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 Status Active Problem Recommendation Dietitian Recommendations/Changes Will change diet to 2000 calorie; consistent carbohydrate. Will d/c ensure enlive w/ medpass. Will add 120ml glucerna shake TID w/ meals. Liberalize diet and add ONS as needed to prevent further wt loss if PO does not improve at meals. Lab / Micro Data Result Diagrams: 03/02/21 06:25 03/02/21 06:25 Labs: Laboratory Results - last 24 hr 03/01/21 15:58: POC Glucose 309 H 03/01/21 22:12: POC Glucose 279 H 03/02/21 06:25: WBC 9.6, RBC 4.12 L, Hgb 13.0, Hct 38.2 L, MCV 92.7, MCH 31.6, MCHC 34.0, RDW Std Deviation 39.7, RDW Coeff of Eh 11.7, Plt Count 196, MPV 11.1, Immature Gran % (Auto) 1.000 H, Neut % (Auto) 76.6 H, Lymph % (Auto) 10.1 L, [place] % (Auto) 9.5, Eos % (Auto) 2.5, Baso % (Auto) 0.3, Absolute Neuts (auto) 7.4, Absolute Lymphs (auto) 0.97, Nucleated RBC % 0, Reactive Lymphocytes 1+ 03/02/21 06:25: Sodium 138, Potassium 4.5, Chloride 104, Carbon Dioxide 29.0, Anion Gap 5, BUN 28 H, Creatinine 0.76, Estim Creat Clear Calc 118.67, Est GFR (MDRD) Af Amer 134, Est GFR (MDRD) Non-Af 111, BUN/Creatinine Ratio 36.7 H, Glucose 226 H, Calcium 7.9 L, Total Bilirubin 0.50, AST 27, ALT 27, Alkaline Phosphatase 65, Total Protein 6.3 L, Albumin 2.2 L, Globulin 4.1, Albumin/Globulin Ratio 0.5 L 03/02/21 07:01: POC Glucose 219 H 03/02/21 10:55: POC Glucose 312 H Micro: Microbiology 02/28/21 23:32 Blood Culture (Wb) - Left Hand Blood Culture - Preliminary No growth in 48 hours. 02/28/21 23:20 Blood Culture (Wb) - Anticubital Left Blood Culture - Preliminary No growth in 48 hours. 03/02/21 10:52 Urine, Random Streptococcus pneumoniae Antigen (M - Final 03/02/21 10:52 Urine, Clean Catch Legionella Antigen - Final 03/01/21 00:05 Urine, Clean Catch Urine Culture - Preliminary Culture exhibits no growth. 02/28/21 23:34 Nasal Secretion SARS-CoV-2 Antigen (Rapid) - Final Physical Exam Narrative Physical exam: General: Alert, Oriented x3, Cooperative, No apparent distress, 7 L of oxygen HEENT: Atraumatic Oral: Moist Mucosa Neck: Supple Lungs: Diminished to auscultation Cardiovascular: HS I+II, regular, no murmurs Abdomen: Bowel Sounds Present, Soft, Non Tender Assessment & Plan Assessment/Plan (1) Acute respiratory failure with hypoxia: (2) Pneumonia due to COVID-19 virus: (3) Lactic acidosis: PLAN: 1. Acute hypoxic respiratory failure secondary to acute COVID-19 pneumonia Patient is currently on 7 L of oxygen He is unvaccinated Continue on Decadron and remdesivir Trial of Lasix 40 mg IV x1 2. Lactic acidosis secondary to #1 3. Type II DM, blood sugars uncontrolled, continue to hold Metformin Continue on insulin 20 units nightly with insulin sliding scale 4. 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 Hypertension, controlled continue on hydrochlorothiazide, lisinopril Charges/Coding Visit Charges Inpatient E&M: 55480 Subs Hosp L3
[2021-03-02 16:55] LABS: Bedside Glucose 339 mg/dL (70-110)
[2021-03-02] MEDS: Furosemide 40 MG/4 ML Vial IV (18:04)
[2021-03-02] MEDS: Atorvastatin Calcium 20 MG Tablet PO (22:18)
[2021-03-02 23:25] LABS: Bedside Glucose 375 mg/dL (70-110)
[2021-03-03] VITALS (7 sets, daily range): BP systolic 111–126; BP diastolic 72–81; PULSE 44–71; RESP 18–20; TEMP 35.8–37.1; O2SAT 92–96
[2021-03-03 07:37] LABS: Absolute Lymphocyte Count 1.19 X10^3/uL (0.83-4.51); Absolute Neutrophil Count 8.8 X10^3/uL (2.0-7.7); Basophil# 0.03 X10^3/uL; Basophil% 0.3 % (0-1); Hematocrit 39.4 % (40-54); Hemoglobin 13.5 g/dL (13.0-16.5); Lymphocyte # 1.19 X10^3/ul (0.83-4.51); Mean Corp Hgb Conc 34.3 g/dL (32-36); Mean Corpuscular Hgb 31.5 pg (27.0-32.0); Mean Corpuscular Volume 92.1 fL (80-94); Mean Platelet Vol. 11.1 fl (6.2-12.0); Monocyte# 0.71 X10^3/uL; Monocyte% 6.5 % (0-10); NRBC Flagged by Analyzer 0 % (0-5); Neutrophil # 8.78 X10^3/uL (2.7-7.7); POSITIVE MORPHOLOGY YES; Platelet Count 223 K/mm3 (150-450); RBC Distribution Width CV 11.6 % (11.6-14.6); RBC Distribution Width SD 39.2 fl (35.1-43.9); Red Blood Count 4.28 M/mm3 (4.6-6.2); White Blood Count 10.8 K/mm3 (4.4-11.0)
[2021-03-03 08:18] LABS: ALB/GLOB Ratio 0.5 RATIO (0.9-2.4); AST(SGOT) 22 U/L (15-37); Alanine Aminotransfer ALT/SGPT 29 U/L (16-61); Albumin, Serum 2.2 g/dL (3.2-5.0); Alkaline Phosphatase 65 U/L (45-117); Anion Gap 7 (5-15); BUN 32 mg/dL (7-18); BUN/Creat Ratio 43.5 RATIO (10-20); Chloride 103 mmol/L (98-107); Creatinine, Serum 0.74 mg/dL (0.70-1.30); EST Glomerular Filtration Rate 115 mL/min (>60); Est Glom Filt Rate - Afr Amer 139 mL/min (>60); Estimated Creatinine Clearance 121.88 ml/min; Globulin 4.1 g/dL (2.2-4.2); Glucose 242 mg/dL (74-106); Potassium 4.1 mmol/L (3.5-5.1); Protein, Total 6.3 g/dL (6.4-8.2); Sodium Level 139 mmol/L (136-145)
[2021-03-03 08:20] LABS: Differential Indicated SCAN CRITERIA MET
[2021-03-03] MEDS: Insulin Lispro 100 UNIT/ML INSULN.PEN SC ×4 (09:11→21:45)
[2021-03-03] MEDS: Bisoprolol Fumarate 5 MG Tablet PO (09:12)
[2021-03-03] MEDS: dexAMETHasone 2 MG TABLET 6 MG PO (09:12)
[2021-03-03] MEDS: Tamsulosin HCl 0.4 MG Capsule PO (09:12)
[2021-03-03] MEDS: Finasteride 5 MG Tablet PO (09:12)
[2021-03-03] MEDS: Lisinopril 5 MG Tablet PO (09:12)
[2021-03-03] MEDS: Enoxaparin 30 MG/0.3 ML Syringe SC ×2 (09:12→21:49)
[2021-03-03] MEDS: guaiFENesin 1,200 MG Tablet 1200 MG PO ×2 (09:12→21:47)
[2021-03-03 09:56] LABS: Bedside Glucose 186 mg/dL (70-110)
--- NOTE | 2021-03-03 10:01 | PCM.PN.HOSP ---
Subjective Subjective Follow-up for acute respiratory failure/acute COVID-19 pneumonia: Patient was seen and examined. He is currently on 13 L of oxygen. Denies any new complaints Objective Data Objective Data Vital Signs: Vital Signs Temp Pulse Resp BP Pulse Ox 97.9 F 66 18 111/72 92 03/03/21 09:04 03/03/21 09:04 03/03/21 09:04 03/03/21 09:04 03/03/21 09:04 Oxygen Flow Rate (L/min) 13 Oxygen Delivery Method Airvo Weight: 89.7 kg Body Mass Index (BMI) 25.4 Intake & Output: Intake and Output for Last 24 Hours 03/01/21 03/02/21 03/03/21 23:59 23:59 23:59 Intake Total 1806 / 2106 1989 / 0 750 / 750 Output Total 350 / 350 Balance 180 / 2106 1640 / 1940 750 / 750 Medical Nutrition Assessment Dietitian: Malnutrition Criteria Met Start: 03/01/21 15:00 Freq: Status: Active Protocol: Document 03/01/21 15:00 RMA (Rec: 03/01/21 15:00 RMA [id number]) Nutrition Malnutrition Evidence of Malnutrition Exists Yes Malnutrition (severe): Acute Illness/Injury Evidenced By Suboptimal Energy Intake ( Severe),Weight Loss (Severe) Clinical Problem Acute Disease or Injury Related Malnutrition Etiology Severe protein-calorie malnutrition in the context of acute illness related to poor appetite and 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 Status Active Problem Recommendation Dietitian Recommendations/Changes Will change diet to 2000 calorie; consistent carbohydrate. Will d/c ensure enlive w/ medpass. Will add 120ml glucerna shake TID w/ meals. Liberalize diet and add ONS as needed to prevent further wt loss if PO does not improve at meals. Lab / Micro Data Result Diagrams: 03/03/21 06:34 03/03/21 06:34 Labs: Laboratory Results - last 24 hr 03/02/21 10:55: POC Glucose 312 H 03/02/21 16:30: POC Glucose 339 H 03/02/21 22:29: POC Glucose 375 H 03/03/21 06:34: WBC 10.8, RBC 4.28 L, Hgb 13.5, Hct 39.4 L, MCV 92.1, MCH 31.5, MCHC 34.3, RDW Std Deviation 39.2, RDW Coeff of He 11.6, Plt Count 223, MPV 11.1, Immature Gran % (Auto) 1.200 H, Neut % (Auto) 81.0 H, Lymph % (Auto) 11.0 L, [place] % (Auto) 6.5, Eos % (Auto) 0.0, Baso % (Auto) 0.3, Absolute Neuts (auto) 8.8 H, Absolute Lymphs (auto) 1.19, Nucleated RBC % 0 03/03/21 06:34: Sodium 139, Potassium 4.1, Chloride 103, Carbon Dioxide 29.0, Anion Gap 7, BUN 32 H, Creatinine 0.74, Estim Creat Clear Calc 121.88, Est GFR (MDRD) Af Amer 139, Est GFR (MDRD) Non-Af 115, BUN/Creatinine Ratio 43.5 H, Glucose 242 H, Calcium 8.0 L, Total Bilirubin 0.50, AST 22, ALT 29, Alkaline Phosphatase 65, Total Protein 6.3 L, Albumin 2.2 L, Globulin 4.1, Albumin/Globulin Ratio 0.5 L 03/03/21 09:03: POC Glucose 186 H Micro: Microbiology 03/01/21 00:05 Urine, Clean Catch Urine Culture - Final Culture exhibits no growth. 02/28/21 23:32 Blood Culture (Wb) - Left Hand Blood Culture - Preliminary No growth in 48 hours. 02/28/21 23:20 Blood Culture (Wb) - Anticubital Left Blood Culture - Preliminary No growth in 48 hours. 03/02/21 10:52 Urine, Random Streptococcus pneumoniae Antigen (M - Final 03/02/21 10:52 Urine, Clean Catch Legionella Antigen - Final 02/28/21 23:34 Nasal Secretion SARS-CoV-2 Antigen (Rapid) - Final Physical Exam Narrative Physical exam: General: Alert, Oriented x3, Cooperative, No apparent distress, 13 L of oxygen HEENT: Atraumatic Oral: Moist Mucosa Neck: Supple Lungs: Diminished to auscultation Cardiovascular: HS I+II, regular, no murmurs Abdomen: Bowel Sounds Present, Soft, Non Tender Assessment & Plan Assessment/Plan (1) Acute respiratory failure with hypoxia: (2) Pneumonia due to COVID-19 virus: (3) Lactic acidosis: PLAN: 1. Acute hypoxic respiratory failure secondary to acute COVID-19 pneumonia Currently on 13 L of oxygen He is unvaccinated Continue on Decadron and remdesivir 2. Lactic acidosis secondary to #1 3. Type II DM, blood sugars uncontrolled, continue to hold Metformin Increase insulin to 35 units nightly with insulin sliding scale 4. 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 Hypertension, controlled Continue on lisinopril Hydrochlorothiazide on hold Charges/Coding Visit Charges Inpatient E&M: 11511 Subs Hosp L2
[2021-03-03 10:38] LABS: Differential Comment SCANNED; Reactive Lymphocyte 1+
[2021-03-03 11:36] LABS: Bedside Glucose 234 mg/dL (70-110)
[2021-03-03 17:15] LABS: Bedside Glucose 343 mg/dL (70-110)
[2021-03-03] MEDS: Atorvastatin Calcium 20 MG Tablet PO (21:47)
[2021-03-03 22:25] LABS: Bedside Glucose 258 mg/dL (70-110)
[2021-03-03] MEDS: Acetaminophen 325 MG Tablet 650 MG PO (22:56)
[2021-03-04] VITALS (12 sets, daily range): BP systolic 123–135; BP diastolic 69–79; PULSE 63–91; RESP 18; TEMP 36.4–38.1; O2SAT 90–98
[2021-03-04] MEDS: guaiFENesin 1,200 MG Tablet 1200 MG PO ×2 (09:37→20:08)
[2021-03-04] MEDS: dexAMETHasone 2 MG TABLET 6 MG PO (09:37)
[2021-03-04] MEDS: Finasteride 5 MG Tablet PO (09:37)
[2021-03-04] MEDS: Bisoprolol Fumarate 5 MG Tablet PO (09:37)
[2021-03-04] MEDS: Lisinopril 5 MG Tablet PO (09:37)
[2021-03-04] MEDS: Enoxaparin 30 MG/0.3 ML Syringe SC ×2 (09:37→20:07)
[2021-03-04] MEDS: Tamsulosin HCl 0.4 MG Capsule PO (09:38)
[2021-03-04 10:05] LABS: Bedside Glucose 118 mg/dL (70-110)
[2021-03-04] MEDS: Insulin Lispro 100 UNIT/ML INSULN.PEN SC ×3 (11:24→23:11)
[2021-03-04 11:36] LABS: Bedside Glucose 207 mg/dL (70-110)
--- NOTE | 2021-03-04 12:17 | PCM.PN.HOSP ---
Subjective Subjective Follow-up for acute respiratory failure/acute COVID-19 pneumonia: Patient was seen and examined. Currently on 15 L of oxygen. He has been spiking fevers. Objective Data Objective Data Vital Signs: Vital Signs Temp Pulse Resp BP Pulse Ox 100.6 F H 88 18 135/77 H 94 03/04/21 09:30 03/04/21 09:30 03/04/21 09:30 03/04/21 09:30 03/04/21 09:30 Oxygen Flow Rate (L/min) 15 Oxygen Delivery Method High Flow Weight: 89.7 kg Body Mass Index (BMI) 25.4 Intake & Output: Intake and Output for Last 24 Hours 03/02/21 03/03/21 03/04/21 23:59 23:59 23:59 Intake Total 1989 / 0 1470 / 1470 490 / 490 Output Total 350 / 350 Balance 1640 / 1940 1470 / 1470 490 / 490 Medical Nutrition Assessment Dietitian: Malnutrition Criteria Met Start: 03/01/21 15:00 Freq: Status: Active Protocol: Document 03/01/21 15:00 RMA (Rec: 03/01/21 15:00 RMA [id number]) Nutrition Malnutrition Evidence of Malnutrition Exists Yes Malnutrition (severe): Acute Illness/Injury Evidenced By Suboptimal Energy Intake ( Severe),Weight Loss (Severe) Clinical Problem Acute Disease or Injury Related Malnutrition Etiology Severe protein-calorie malnutrition in the context of acute illness related to poor appetite 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 Status Active Problem Recommendation Dietitian Recommendations/Changes Will change diet to 2000 calorie; consistent carbohydrate. Will d/c ensure enlive w/ medpass. Will add 120ml glucerna shake TID w/ meals. Liberalize diet and add ONS as needed to prevent further wt loss if PO does not improve at meals. Lab / Micro Data Result Diagrams: 03/03/21 06:34 03/03/21 06:34 Labs: Laboratory Results - last 24 hr 03/03/21 17:01: POC Glucose 343 H 03/03/21 21:38: POC Glucose 258 H 03/04/21 09:33: POC Glucose 118 H 03/04/21 11:23: POC Glucose 207 H Micro: Microbiology 03/01/21 00:05 Urine, Clean Catch Urine Culture - Final Culture exhibits no growth. 02/28/21 23:32 Blood Culture (Wb) - Left Hand Blood Culture - Preliminary No growth in 48 hours. 02/28/21 23:20 Blood Culture (Wb) - Anticubital Left Blood Culture - Preliminary No growth in 48 hours. 03/02/21 10:52 Urine, Random Streptococcus pneumoniae Antigen (M - Final 03/02/21 10:52 Urine, Clean Catch Legionella Antigen - Final 02/28/21 23:34 Nasal Secretion SARS-CoV-2 Antigen (Rapid) - Final Physical Exam Narrative Physical exam: General: Alert, Oriented x3, Cooperative, No apparent distress, 15 L of oxygen HEENT: Atraumatic Oral: Moist Mucosa Neck: Supple Lungs: Diminished to auscultation Cardiovascular: HS I+II, regular, no murmurs Abdomen: Bowel Sounds Present, Soft, Non Tender Assessment & Plan Assessment/Plan (1) Acute respiratory failure with hypoxia: (2) Pneumonia due to COVID-19 virus: (3) Lactic acidosis: PLAN: Summary: 61-year-old male who is unvaccinated with past medical history of type II DM, hypertension who comes in with progressive shortness of breath ongoing for 1 week. Patient is being managed at acute COVID-19 pneumonia with respiratory failure. 1. Acute hypoxic respiratory failure secondary to acute COVID-19 pneumonia, worsening Currently on 15 L of oxygen He is unvaccinated Completed remdesivir today, Continue on Decadron 2. Lactic acidosis secondary to #1 3. Type II DM, blood sugars remains fairly uncontrolled, continue to hold Metformin Increase insulin to 40 units nightly with insulin sliding scale 4. 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 Hypertension, controlled, continue on lisinopril Hydrochlorothiazide on hold Charges/Coding Visit Charges Inpatient E&M: 19755 Subs Hosp L3
[2021-03-04] MEDS: Acetaminophen 325 MG Tablet 650 MG PO ×2 (14:49→23:12)
--- NOTE | 2021-03-04 16:20 | RAD_ITS ---
INDICATION: Progressive hypoxia EXAMINATION/TECHNIQUE: X-RAY - XR Chest 1 View COMPARISON: Radiograph of the chest dated 02/28/2021 FINDINGS: LINES/DEVICES: External lines overlie the patient LUNGS: Redemonstrated are multiple patchy airspace opacities within the bilateral lungs. They do not appear significantly improved in the interval. Right costophrenic angle is blunted with questionable small pleural effusion. Left costophrenic angle appear sharp. No obvious pneumothorax is seen. MEDIASTINUM AND CARDIOVASCULAR STRUCTURES: Cardiac silhouette and pulmonary vasculature does not appear enlarged. Airway is midline. Atherosclerotic calcification is noted in the aorta. BONES AND SOFT TISSUES: Degenerative changes are noted in the osseous structures without acute fracture seen. RAD/Chest 1 View (Portable) IMPRESSION: Redemonstration of multifocal bilateral airspace opacities in the lungs. This is suggestive of multilobar pneumonia. It is not significantly improved in the interval. There is also question of small right pleural effusion. Electronically Signed: Arben Jain MD at 17:40 EST Tel , Service support ,
[2021-03-04] MEDS: Atorvastatin Calcium 20 MG Tablet PO (20:08)
[2021-03-04 21:41] LABS: Bedside Glucose 270 mg/dL (70-110)
[2021-03-04 23:21] LABS: Bedside Glucose 255 mg/dL (70-110)
[2021-03-05] VITALS (12 sets, daily range): BP systolic 109–131; BP diastolic 71–84; PULSE 59–89; RESP 12–24; TEMP 35.9–36.7; O2SAT 94–99
[2021-03-05 07:01] LABS: Absolute Lymphocyte Count 1.06 X10^3/uL (0.83-4.51); Absolute Neutrophil Count 8.5 X10^3/uL (2.0-7.7); Basophil# 0.05 X10^3/uL; Basophil% 0.5 % (0-1); Eosinophil# 0.05 X10^3/uL; Eosinophils% 0.5 % (0-5); Hemoglobin 14.1 g/dL (13.0-16.5); Lymphocyte # 1.06 X10^3/ul (0.83-4.51); Lymphocyte % 9.9 % (19-41); Mean Corp Hgb Conc 33.6 g/dL (32-36); Mean Corpuscular Hgb 31.1 pg (27.0-32.0); Mean Corpuscular Volume 92.7 fL (80-94); Mean Platelet Vol. 10.7 fl (6.2-12.0); Monocyte# 0.64 X10^3/uL; NRBC Flagged by Analyzer 0 % (0-5); Neutrophil # 8.51 X10^3/uL (2.7-7.7); Neutrophil % 79.7 % (47-70); Platelet Count 277 K/mm3 (150-450); RBC Distribution Width CV 11.6 % (11.6-14.6); RBC Distribution Width SD 39.7 fl (35.1-43.9); Red Blood Count 4.53 M/mm3 (4.6-6.2); White Blood Count 10.7 K/mm3 (4.4-11.0)
[2021-03-05 07:24] LABS: ALB/GLOB Ratio 0.5 RATIO (0.9-2.4); AST(SGOT) 23 U/L (15-37); Alanine Aminotransfer ALT/SGPT 42 U/L (16-61); Albumin, Serum 2.2 g/dL (3.2-5.0); Alkaline Phosphatase 74 U/L (45-117); Anion Gap 5 (5-15); BUN 18 mg/dL (7-18); BUN/Creat Ratio 29.2 RATIO (10-20); Calcium,Total 8.2 mg/dL (8.5-10.1); Chloride 103 mmol/L (98-107); Creatinine, Serum 0.62 mg/dL (0.70-1.30); EST Glomerular Filtration Rate 141 mL/min (>60); Est Glom Filt Rate - Afr Amer 171 mL/min (>60); Estimated Creatinine Clearance 145.47 ml/min; Globulin 4.6 g/dL (2.2-4.2); Glucose 122 mg/dL (74-106); Potassium 4.4 mmol/L (3.5-5.1); Protein, Total 6.8 g/dL (6.4-8.2); Sodium Level 138 mmol/L (136-145)
--- NOTE | 2021-03-05 07:51 | NURSING ---
pt woke up to use the urinal an repositioned himself in the bed. O2 sats dropped to 85% on 13L highflow, denies SOB, chest pain, RR 20. Bumped 02 to 15L highflow however 02 was only satting in the 80s and wouldn't come up. Maxed on highflow, called RT to switch o2 support, now on bipap 02 sats at 100%. Pt seems to be tolerating it at this time.
[2021-03-05] MEDS: Tamsulosin HCl 0.4 MG Capsule PO (09:06)
[2021-03-05] MEDS: Acetaminophen 325 MG Tablet 650 MG PO (09:06)
[2021-03-05] MEDS: guaiFENesin 1,200 MG Tablet 1200 MG PO ×2 (09:07→22:31)
[2021-03-05] MEDS: Bisoprolol Fumarate 5 MG Tablet PO (09:07)
[2021-03-05] MEDS: Enoxaparin 30 MG/0.3 ML Syringe SC ×2 (09:07→22:31)
[2021-03-05] MEDS: Finasteride 5 MG Tablet PO (09:07)
[2021-03-05] MEDS: dexAMETHasone 2 MG TABLET 6 MG PO (09:07)
[2021-03-05] MEDS: Lisinopril 5 MG Tablet PO (09:07)
[2021-03-05 10:16] LABS: Bedside Glucose 84 mg/dL (70-110)
--- NOTE | 2021-03-05 11:40 | PN.HOSP_ITS ---
Subjective Subjective Patient seen and examined. He was on BiPAP at time of review. He had no active complaint and did not feel like his breathing had worsened though he had transitioned to BiPAP. Review of systems otherwise negative. He has otherwise remained hemodynamically stable. Objective Data Objective Data Vital Signs: Vital Signs Temp Pulse Resp BP Pulse Ox 96.8 F L 78 20 H 114/74 99 03/05/21 09:00 03/05/21 09:00 03/05/21 09:00 03/05/21 09:00 03/05/21 09:00 Oxygen Flow Rate (L/min) 15 Oxygen Delivery Method Bi-pap Weight: 197 lb 12.074 oz Body Mass Index (BMI) 25.4 Intake & Output: Intake and Output for Last 24 Hours 03/03/21 03/04/21 03/05/21 23:59 23:59 23:59 Intake Total 1470 / 1470 1090 / 1090 250 / 250 Output Total 1000 / 1000 600 / 600 Balance 1470 / 1470 90 / 90 -350 / -350 Medical Nutrition Assessment Dietitian: Malnutrition Criteria Met Start: 03/01/21 15:00 Freq: Status: Active Protocol: Document 03/01/21 15:00 RMA (Rec: 03/01/21 15:00 RMA [id number]) Nutrition Malnutrition Evidence of Malnutrition Exists Yes Malnutrition (severe): Acute Illness/Injury Evidenced By Suboptimal Energy Intake ( Severe),Weight Loss (Severe) Clinical Problem Acute Disease or Injury Related Malnutrition Etiology Severe protein-calorie malnutrition in the context of acute illness related to poor appetite and 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 Status Active Problem Recommendation Dietitian Recommendations/Changes Will change diet to 2000 calorie; consistent carbohydrate. Will d/c ensure enlive w/ medpass. Will add 120ml glucerna shake TID w/ meals. Liberalize diet and add ONS as needed to prevent further wt loss if PO does not improve at meals. Lab / Micro Data Result Diagrams: 03/05/21 06:22 03/05/21 06:22 Labs: Laboratory Results - last 24 hr 03/04/21 16:17: POC Glucose 270 H 03/04/21 23:09: POC Glucose 255 H 03/05/21 06:22: WBC 10.7, RBC 4.53 L, Hgb 14.1, Hct 42.0, MCV 92.7, MCH 31.1, MCHC 33.6, RDW Std Deviation 39.7, RDW Coeff of Eh 11.6, Plt Count 277, MPV 10.7, Immature Gran % (Auto) 3.400 H, Neut % (Auto) 79.7 H, Lymph % (Auto) 9.9 L , [place] % (Auto) 6.0, Eos % (Auto) 0.5, Baso % (Auto) 0.5, Absolute Neuts (auto) 8.5 H, Absolute Lymphs (auto) 1.06, Nucleated RBC % 0 03/05/21 06:22: Sodium 138, Potassium 4.4, Chloride 103, Carbon Dioxide 30.0, Anion Gap 5, BUN 18, Creatinine 0.62 L, Estim Creat Clear Calc 145.47, Est GFR (MDRD) Af Amer 171, Est GFR (MDRD) Non-Af 141, BUN/Creatinine Ratio 29.2 H, Glucose 122 H, Calcium 8.2 L, Total Bilirubin 1.00, AST 23, ALT 42, Alkaline Phosphatase 74, Total Protein 6.8, Albumin 2.2 L, Globulin 4.6 H, Albumin/Globulin Ratio 0.5 L 03/05/21 09:00: POC Glucose 84 Micro: Microbiology 03/01/21 00:05 Urine, Clean Catch Urine Culture - Final Culture exhibits no growth. 02/28/21 23:32 Blood Culture (Wb) - Left Hand Blood Culture - Preliminary No growth in 48 hours. 02/28/21 23:20 Blood Culture (Wb) - Anticubital Left Blood Culture - Preliminary No growth in 48 hours. 03/02/21 10:52 Urine, Random Streptococcus pneumoniae Antigen (M - Final 03/02/21 10:52 Urine, Clean Catch Legionella Antigen - Final 02/28/21 23:34 Nasal Secretion SARS-CoV-2 Antigen (Rapid) - Final Radiography Diagnostic Testing: Radiology Impression Chest X-Ray 03/04/21 16:20 IMPRESSION: Redemonstration of multifocal bilateral airspace opacities in the lungs. This is suggestive of multilobar pneumonia. It is not significantly improved in the interval. There is also question of small right pleural effusion. Electronically Signed: Arben Jain MD at 17:40 EST Tel , Service support , Physical Exam Const alert, oriented x3 and no apparent distress Exam Limitations: no limitations HEENT head/scalp atraumatic, moist oral mucous membranes and oropharynx normal Head and Scalp: normocephalic Eyes PERRL, EOMs intact bilaterally and conjunctivae normal Neck no lymphadenopathy Resp Resp Narrative: diminished breath sounds bibasally, few crackles, no wheezing. On BIPAP. Cardio regular rate, regular rhythm, S1 normal heart sound, S2 normal heart sound and no murmurs GI normal to inspection, nondistended, normoactive bowel sounds, soft to palpation, non-tender and non-distended Extremity normal to inspection, full ROM and no clubbing, cyanosis or edema Peripheral Pulses: Yes pulses 2+ throughout Skin no rashes or lesions noted Neuro oriented x3, CN's II-XII intact bilaterally and moves all extremities Sensorium / Orientation: awake Psych affect normal Assessment & Plan Assessment/Plan (1) Pneumonia due to COVID-19 virus: (2) Acute respiratory failure with hypoxia: (3) Suspected COVID-19 virus infection: PLAN: #Acute hypoxic respiratory failure due to COVID 19 pneumonia * on BIPAP. He is unvaccinated * Now on BiPAP. Has completed remdesivir. On Decadron. * Titrate oxygen to maintain saturation above 90%. Breathing treatments of bronchodilators. * Consult pulmonology as he is now on BiPAP. * #Type 2 diabetes mellitus: * Lantus increased to 40 units nightly on account of poorly controlled diabetes. * Insulin sliding scale. * Accuchecks AC at bedtime. * #Severe malnutrition: * Nutrition on board. On 2000-calorie diet with consistent carbohydrate and Glucerna shake supplements 3 times daily. * Hypertension: On bisoprolol and hydrochlorothiazide as well as lisinopril #Hyperlipidemia: On statin DVT prophylaxis: lovenox 30mg bid Charges/Coding Visit Charges Inpatient E&M: 46347 Subs Hosp L3
[2021-03-05] MEDS: Insulin Lispro 100 UNIT/ML INSULN.PEN SC ×3 (12:12→22:31)
[2021-03-05 12:35] LABS: Bedside Glucose 191 mg/dL (70-110)
--- NOTE | 2021-03-05 13:38 | CON.PCM.CC_ITS ---
Assessment & Plan Assessment/Plan (1) Pneumonia due to COVID-19 virus: (2) Acute respiratory failure with hypoxia: PLAN: RECOMMENDATIONS: 1. Continue to wean oxygen to maintain saturations at or above 90%. 2. Pap therapy as needed. 3. Check D-dimer and procalcitonin. 4. If D-dimer is elevated, obtain CTA chest. 5. Encourage incentive spirometer use and mobilize patient as tolerated. 6. Awake prone positioning was encouraged. 7. Diuretics, as needed, to maintain euvolemic state. 8. Infectious diseases consultation for potential baricitinib. IMPRESSIONS: 1. Acute hypoxemic respiratory failure secondary to COVID-19 pneumonia The patient presented to the hospital with progressive Covid symptoms and has since completed a treatment course of remdesivir. The patient remains on Decadron and prophylactic Lovenox. His oxygenation status worsened this morning, necessitating the use of BiPAP therapy. He has since been weaned back to nasal cannula oxygen. I would recommend that we check a CRP level and D- dimer. If D-dimer is elevated, obtain CTA chest. Obtain infectious diseases consultation for potential baricitinib administration. 2. History of hypertension/hyperlipidemia/diabetes mellitus Complicates care, management, recovery and prognosis. Continue home medications as indicated. This note was generated with [employer] dictation software. It may contain incorrect words, spelling, and punctuation that were not noted in checking the note before signing. HPI Consult Data Date of Consult: 03/05/21 HPI Narrative Reason for Consultation: Acute hypoxemic respiratory failure secondary to COVID- 19 pneumonia HPI Narrative: The patient is a 61-year-old male, with a history as outlined below, who presented to the emergency department on March 01 with progressive dyspnea, fevers, chills, headache and cough. The patient is unvaccinated and does report recent sick contact exposure. Symptom onset was sometime around February 22. On presentation to the emergency department, the patient was noted to have a low-grade fever and was quite tachypneic. Laboratory evaluation revealed no evidence of a leukocytosis. Chemistry profile was largely unrevealing. Lactate was elevated to 2.9. CRP was elevated to 118. Procalcitonin was noted to be 0.14. Covid testing was positive on March 01. Chest x-ray demonstrated multifocal airspace disease. The patient was initiated on Decadron, prophylactic Lovenox and remdesivir, which has since been completed. This morning, the patient developed a coughing fit which led to worsening hypoxemia and the need for BiPAP. However, the patient has been weaned to nasal cannula supplemental oxygen at this time and appears comfortable in bed. [facility] Medical History BPH (benign prostatic hyperplasia) Diabetes Former smoker Hyperlipidemia Hypertension Smokeless tobacco use Home Medications bisoprolol-hydrochlorothiazide 1 tab PO DAILY 03/01/21 [History Last Taken Unknown] doxycycline monohydrate 100 mg PO BID 03/01/21 [History Last Taken Unknown] finasteride 5 mg PO DAILY 03/01/21 [History Last Taken Unknown] lisinopril 5 mg PO DAILY 03/01/21 [History Last Taken Unknown] metformin 1,000 mg PO BID 03/01/21 [History Last Taken Unknown] rosuvastatin 10 mg PO QHS 03/01/21 [History Last Taken Unknown] tamsulosin 0.4 mg PO DAILY 03/01/21 [History Last Taken Unknown] Allergy/AdvReac Type Severity Reaction Status Date / Time No Known Allergies Allergy Verified 02/28/21 23:02 Family History Other Cancer Diabetes Surgical History History of back surgery Hx of inguinal hernia repair Social History Smoking Status: Former smoker ROS Constitutional Constitutional: Reports fatigue, malaise and weakness Eyes Eyes: Denies blurry vision or change in vision ENT HEENT: Reports headache(s); Denies dizziness or dysphagia Cardiovascular Cardiovascular: Reports dyspnea; Denies chest pain Respiratory/Chest Respiratory/Chest: Reports cough and dyspnea Gastrointestinal Gastrointestinal: Denies abdominal pain, diarrhea, nausea or vomiting Genitourinary Genitourinary: Denies difficulty urinating Musculoskeletal Musculoskeletal: Denies arthralgias, back pain or joint pain Integumentary Integumentary: Denies lesions, rash or skin ulcer Neurologic Neurologic: Denies abnormal gait or abnormal speech Psychiatric Psychiatric: Denies anxiety or depression Endocrine Endocrinology: Reports fatigue Hematologic/Lymphatic Hematologic/Lymphatic: Denies easy bleeding or easy bruising Physical Exam Const alert and no apparent distress General Appearance: cooperative HEENT normocephalic, head/scalp atraumatic and moist oral mucous membranes Eyes PERRL, EOMs intact bilaterally and conjunctivae normal Neck supple General: trachea midline Resp no use of accessory muscles Effort and Inspection: able to speak in complete sentences Auscultation: diminished lung sounds Cardio regular rate and regular rhythm GI normal to inspection, nondistended, normoactive bowel sounds Extremity no clubbing, cyanosis or edema Skin no rashes or lesions noted Neuro CN's II-XII intact bilaterally, moves all extremities and no focal motor deficits Psych cooperative and affect normal Medical Records Data Medical Nutrition Assessment Dietitian: Malnutrition Criteria Met Start: 03/01/21 15:00 Freq: Status: Active Protocol: Document 03/01/21 15:00 RMA (Rec: 03/01/21 15:00 RMA [id number]) Nutrition Malnutrition Evidence of Malnutrition Exists Yes Malnutrition (severe): Acute Illness/Injury Evidenced By Suboptimal Energy Intake ( Severe),Weight Loss (Severe) Clinical Problem Acute Disease or Injury Related Malnutrition Etiology Severe protein-calorie malnutrition in the context of acute illness related to poor appetite and 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 Status Active Problem Recommendation Dietitian Recommendations/Changes Will change diet to 2000 calorie; consistent carbohydrate. Will d/c ensure enlive w/ medpass. Will add 120ml glucerna shake TID w/ meals. Liberalize diet and add ONS as needed to prevent further wt loss if PO does not improve at meals. Lab / Micro Data Result Diagrams: 03/05/21 06:22 03/05/21 06:22 Labs: Laboratory Results - last 24 hr 03/04/21 16:17: POC Glucose 270 H 03/04/21 23:09: POC Glucose 255 H 03/05/21 06:22: WBC 10.7, RBC 4.53 L, Hgb 14.1, Hct 42.0, MCV 92.7, MCH 31.1, MCHC 33.6, RDW Std Deviation 39.7, RDW Coeff of Eh 11.6, Plt Count 277, MPV 10.7, Immature Gran % (Auto) 3.400 H, Neut % (Auto) 79.7 H, Lymph % (Auto) 9.9 L , [place] % (Auto) 6.0, Eos % (Auto) 0.5, Baso % (Auto) 0.5, Absolute Neuts (auto) 8.5 H, Absolute Lymphs (auto) 1.06, Nucleated RBC % 0 03/05/21 06:22: Sodium 138, Potassium 4.4, Chloride 103, Carbon Dioxide 30.0, Anion Gap 5, BUN 18, Creatinine 0.62 L, Estim Creat Clear Calc 145.47, Est GFR (MDRD) Af Amer 171, Est GFR (MDRD) Non-Af 141, BUN/Creatinine Ratio 29.2 H, Glucose 122 H, Calcium 8.2 L, Total Bilirubin 1.00, AST 23, ALT 42, Alkaline Phosphatase 74, Total Protein 6.8, Albumin 2.2 L, Globulin 4.6 H, Albumin/Globulin Ratio 0.5 L 03/05/21 09:00: POC Glucose 84 03/05/21 12:11: POC Glucose 191 H Radiology Impression Chest X-Ray 03/04/21 16:20 IMPRESSION: Redemonstration of multifocal bilateral airspace opacities in the lungs. This is suggestive of multilobar pneumonia. It is not significantly improved in the interval. There is also question of small right pleural effusion. Electronically Signed: Arben Jain MD at 17:40 EST Tel , Service support , Charges/Coding Visit Charges Inpatient E&M: 44920 Init Hosp L3
[2021-03-05 14:35] LABS: D-Dimer Quantitative (DVT/PE) 0.41 FEU/ug/m (0.27-0.49)
[2021-03-05 14:52] LABS: BNP,B-Type NATRIURETIC PEPTIDE 38.4 pg/mL (0-100)
[2021-03-05 17:25] LABS: Procalcitonin 0.06 ng/mL (0.00-0.09)
[2021-03-05 17:35] LABS: Bedside Glucose 308 mg/dL (70-110)
--- NOTE | 2021-03-05 21:34 | CON.PCM.ID_ITS ---
Assessment & Plan Assessment/Plan (1) Pneumonia due to COVID-19 virus: PLAN: Sx started around 02/22. Isolate until 03/14. Unvaccinated, recommended vaccine once out of iso. On dex, completed remdesivir. Will check repeat d-dimer, procal, crp. Discussed baricitinib and EUA, he says he feels fine and does not want to be a guinea pig. Will follow, thank you (2) Acute respiratory failure with hypoxia: HPI Consult Data Date of Consult: 03/05/21 HPI Narrative HPI Narrative: NAYANA NAJERA, is a 61 M who presented 03/01 with one week of cough, fever, aches, not feeling well, progressive dyspnea. COVID (+) at urgent care. Lives with family at home, all recovering from covid. He is unvaccinated. Came to ED, admitted on dex and remdesivir. Feeling better, was put on bipap briefly today. Full ROS performed and neg except as noted above. PFSH Medical History BPH (benign prostatic hyperplasia) Diabetes Former smoker Hyperlipidemia Hypertension Smokeless tobacco use Home Medications bisoprolol-hydrochlorothiazide 1 tab PO DAILY 03/01/21 [History Last Taken Unkno wn] doxycycline monohydrate 100 mg PO BID 03/01/21 [History Last Taken Unknown] finasteride 5 mg PO DAILY 03/01/21 [History Last Taken Unknown] lisinopril 5 mg PO DAILY 03/01/21 [History Last Taken Unknown] metformin 1,000 mg PO BID 03/01/21 [History Last Taken Unknown] rosuvastatin 10 mg PO QHS 03/01/21 [History Last Taken Unknown] tamsulosin 0.4 mg PO DAILY 03/01/21 [History Last Taken Unknown] Allergy/AdvReac Type Severity Reaction Status Date / Time No Known Allergies Allergy Verified 02/28/21 23:02 Family History Other Cancer Diabetes Surgical History History of back surgery Hx of inguinal hernia repair Social History Smoking Status: Former smoker Physical Exam Const alert, oriented x3 and no apparent distress General Appearance: cooperative Exam Limitations: no limitations HEENT head/scalp atraumatic Eyes PERRL and EOMs intact bilaterally Neck supple and No nodes Lymph Lymphatic: no lymphadenopathy noted Resp Auscultation: diminished lung sounds Cardio regular rate and regular rhythm GI normal to inspection, nondistended, normoactive bowel sounds Extremity no clubbing, cyanosis or edema Skin no rashes or lesions noted Neuro CN's II-XII intact bilaterally Medical Records Data Medical Nutrition Assessment Dietitian: Malnutrition Criteria Met Start: 03/01/21 15:00 Freq: Status: Active Protocol: Document 03/01/21 15:00 RMA (Rec: 03/01/21 15:00 RMA [id number]) Nutrition Malnutrition Evidence of Malnutrition Exists Yes Malnutrition (severe): Acute Illness/Injury Evidenced By Suboptimal Energy Intake ( Severe),Weight Loss (Severe) Clinical Problem Acute Disease or Injury Related Malnutrition Etiology Severe protein-calorie malnutrition in the context of acute illness related to poor appetite and 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 Status Active Problem Recommendation Dietitian Recommendations/Changes Will change diet to 2000 calorie; consistent carbohydrate. Will d/c ensure enlive w/ medpass. Will add 120ml glucerna shake TID w/ meals. Liberalize diet and add ONS as needed to prevent further wt loss if PO does not improve at meals. Lab / Micro Data Result Diagrams: 03/05/21 06:22 03/05/21 06:22 Labs: Laboratory Results - last 24 hr 03/04/21 16:17: POC Glucose 270 H 03/04/21 23:09: POC Glucose 255 H 03/05/21 06:22: WBC 10.7, RBC 4.53 L, Hgb 14.1, Hct 42.0, MCV 92.7, MCH 31.1, MCHC 33.6, RDW Std Deviation 39.7, RDW Coeff of Eh 11.6, Plt Count 277, MPV 10.7, Immature Gran % (Auto) 3.400 H, Neut % (Auto) 79.7 H, Lymph % (Auto) 9.9 L , [place] % (Auto) 6.0, Eos % (Auto) 0.5, Baso % (Auto) 0.5, Absolute Neuts (auto) 8.5 H, Absolute Lymphs (auto) 1.06, Nucleated RBC % 0 03/05/21 06:22: Sodium 138, Potassium 4.4, Chloride 103, Carbon Dioxide 30.0, Anion Gap 5, BUN 18, Creatinine 0.62 L, Estim Creat Clear Calc 145.47, Est GFR (MDRD) Af Amer 171, Est GFR (MDRD) Non-Af 141, BUN/Creatinine Ratio 29.2 H, Glucose 122 H, Calcium 8.2 L, Total Bilirubin 1.00, AST 23, ALT 42, Alkaline Phosphatase 74, Total Protein 6.8, Albumin 2.2 L, Globulin 4.6 H, Albumin/Globulin Ratio 0.5 L 03/05/21 06:22: C-React Prot Ext Range 126.00 H 03/05/21 06:22: B-Natriuretic Peptide 38.4 03/05/21 09:00: POC Glucose 84 03/05/21 12:11: POC Glucose 191 H 03/05/21 14:00: D-Dimer Quant (PE/DVT) 0.41 03/05/21 16:04: Procalcitonin 0.06 03/05/21 17:25: POC Glucose 308 H
[2021-03-05] MEDS: Atorvastatin Calcium 20 MG Tablet PO (22:31)
[2021-03-05 22:40] LABS: Bedside Glucose 299 mg/dL (70-110)
[2021-03-06] VITALS (14 sets, daily range): BP systolic 108–126; BP diastolic 71–82; PULSE 53–101; RESP 12–24; TEMP 36.3–36.8; O2SAT 90–98
[2021-03-06 08:43] LABS: Absolute Lymphocyte Count 1.05 X10^3/uL (0.83-4.51); Absolute Neutrophil Count 8.7 X10^3/uL (2.0-7.7); Basophil# 0.06 X10^3/uL; Basophil% 0.5 % (0-1); Eosinophil# 0.16 X10^3/uL; Eosinophils% 1.4 % (0-5); Hematocrit 39.4 % (40-54); Hemoglobin 13.4 g/dL (13.0-16.5); Lymphocyte # 1.05 X10^3/ul (0.83-4.51); Lymphocyte % 9.4 % (19-41); Mean Corpuscular Volume 91.2 fL (80-94); Mean Platelet Vol. 10.8 fl (6.2-12.0); Monocyte# 0.83 X10^3/uL; Monocyte% 7.4 % (0-10); NRBC Flagged by Analyzer 0 % (0-5); Neutrophil # 8.68 X10^3/uL (2.7-7.7); Neutrophil % 77.7 % (47-70); Platelet Count 325 K/mm3 (150-450); RBC Distribution Width CV 11.6 % (11.6-14.6); RBC Distribution Width SD 38.8 fl (35.1-43.9); Red Blood Count 4.32 M/mm3 (4.6-6.2); White Blood Count 11.2 K/mm3 (4.4-11.0)
[2021-03-06 09:32] LABS: ALB/GLOB Ratio 0.4 RATIO (0.9-2.4); AST(SGOT) 12 U/L (15-37); Alanine Aminotransfer ALT/SGPT 30 U/L (16-61); Alkaline Phosphatase 69 U/L (45-117); Anion Gap 3 (5-15); BUN 20 mg/dL (7-18); BUN/Creat Ratio 33.7 RATIO (10-20); Calcium,Total 8.6 mg/dL (8.5-10.1); Chloride 104 mmol/L (98-107); Creatinine, Serum 0.59 mg/dL (0.70-1.30); EST Glomerular Filtration Rate 148 mL/min (>60); Est Glom Filt Rate - Afr Amer 179 mL/min (>60); Estimated Creatinine Clearance 152.87 ml/min; Globulin 4.7 g/dL (2.2-4.2); Glucose 129 mg/dL (74-106); Potassium 4.7 mmol/L (3.5-5.1); Protein, Total 6.7 g/dL (6.4-8.2); Sodium Level 137 mmol/L (136-145)
--- NOTE | 2021-03-06 09:46 | PCM.PN.INT ---
Assessment & Plan Assessment/Plan (1) Pneumonia due to COVID-19 virus: (2) Acute respiratory failure with hypoxia: PLAN: RECOMMENDATIONS: 1. Continue to wean supplemental oxygen to maintain saturations at or above 90%. 2. Continue Decadron and prophylactic Lovenox. 3. Encourage incentive spirometer use and mobilize patient as tolerated. 4. Awake prone positioning was encouraged. 5. Diuretics, as needed, to maintain euvolemic state. IMPRESSIONS: 1. Acute hypoxemic respiratory failure secondary to COVID-19 pneumonia The patient presented to the hospital with progressive Covid symptoms and has since completed a treatment course of remdesivir. The patient remains on Decadron and prophylactic Lovenox. His oxygenation status has remained somewhat tenuous. Following evaluation by infectious diseases, the patient refused baricitinib. Procalcitonin and BNP were within normal limits. Continue supportive measures for now. Encourage incentive spirometer use and mobilize patient as tolerated. Diuretics, as needed, to maintain euvolemic state. 2. History of hypertension/hyperlipidemia/diabetes mellitus Complicates care, management, recovery and prognosis. Continue home medications as indicated. This note was generated with [employer] dictation software. It may contain incorrect words, spelling, and punctuation that were not noted in checking the note before signing. Subjective Subjective The patient was seen and examined at the bedside this morning. Events from the last 24 hours have been reviewed. The patient is currently afebrile, hemodynamically stable and maintaining appropriate oxygen saturations on BiPAP with an FiO2 requirement of 45%. The patient is currently documented to be overall net +4.3 L for the hospitalization. The patient remains on Decadron and prophylactic Lovenox. Liver and renal function are stable. The patient refused baricitinib after discussing with infectious diseases. D-dimer yesterday was within normal limits. BNP was unremarkable. Procalcitonin was also unremarkable. Objective Data Objective Data The patient's most recent lab work, culture data and imaging studies have all been personally reviewed. Blood and urine cultures have demonstrated no growth to date. Strep and urine Legionella antigens were negative. Vital Signs: Vital Signs Temp Pulse Resp BP Pulse Ox 98.2 F 56 L 16 108/82 H 97 03/06/21 04:00 03/06/21 07:00 03/06/21 04:55 03/06/21 04:00 03/06/21 04:55 Oxygen Flow Rate (L/min) 10 Oxygen Delivery Method Bi-pap Weight: 89.7 kg Body Mass Index (BMI) 25.4 Intake & Output: Intake and Output for Last 24 Hours 03/04/21 03/05/21 03/06/21 23:59 23:59 23:59 Intake Total 1090 / 1090 1550 / 1550 0 / 0 Output Total 1000 / 1000 1600 / 1600 600 / 600 Balance 90 / 90 -50 / -50 -600 / -600 Medical Nutrition Assessment Dietitian: Malnutrition Criteria Met Start: 03/01/21 15:00 Freq: Status: Active Protocol: Document 03/01/21 15:00 RMA (Rec: 03/01/21 15:00 RMA [id number]) Nutrition Malnutrition Evidence of Malnutrition Exists Yes Malnutrition (severe): Acute Illness/Injury Evidenced By Suboptimal Energy Intake ( Severe),Weight Loss (Severe) Clinical Problem Acute Disease or Injury Related Malnutrition Etiology Severe protein-calorie malnutrition in the context of acute illness related to poor appetite and inadequate oral intake 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 Status Active Problem Recommendation Dietitian Recommendations/Changes Will change diet to 2000 calorie; consistent carbohydrate. Will d/c ensure enlive w/ medpass. Will add 120ml glucerna shake TID w/ meals. Liberalize diet and add ONS as needed to prevent further wt loss if PO does not improve at meals. Lab / Micro Data Attestation: I reviewed the patient's lab results. Result Diagrams: 03/06/21 07:20 03/06/21 07:20 Labs: Laboratory Results - last 24 hr 03/05/21 06:22: C-React Prot Ext Range 126.00 H 03/05/21 06:22: B-Natriuretic Peptide 38.4 03/05/21 09:00: POC Glucose 84 03/05/21 12:11: POC Glucose 191 H 03/05/21 14:00: D-Dimer Quant (PE/DVT) 0.41 03/05/21 16:04: Procalcitonin 0.06 03/05/21 17:25: POC Glucose 308 H 03/05/21 22:23: POC Glucose 299 H 03/06/21 07:20: WBC 11.2 H, RBC 4.32 L, Hgb 13.4, Hct 39.4 L, MCV 91.2, MCH 31.0, MCHC 34.0, RDW Std Deviation 38.8, RDW Coeff of Eh 11.6, Plt Count 325, MPV 10.8, Immature Gran % (Auto) 3.600 H, Neut % (Auto) 77.7 H, Lymph % (Auto) 9.4 L, [place] % (Auto) 7.4, Eos % (Auto) 1.4, Baso % (Auto) 0.5, Absolute Neuts (auto) 8.7 H, Absolute Lymphs (auto) 1.05, Nucleated RBC % 0 03/06/21 07:20: Sodium 137, Potassium 4.7, Chloride 104, Carbon Dioxide 30.0, Anion Gap 3 L, BUN 20 H, Creatinine 0.59 L, Estim Creat Clear Calc 152.87, Est GFR (MDRD) Af Amer 179, Est GFR (MDRD) Non-Af 148, BUN/Creatinine Ratio 33.7 H, Glucose 129 H, Calcium 8.6, Total Bilirubin 0.70, AST 12 L, ALT 30, Alkaline Phosphatase 69, Total Protein 6.7, Albumin 2.0 L, Globulin 4.7 H, Albumin/Globulin Ratio 0.4 L Micro: Microbiology 02/28/21 23:32 Blood Culture (Wb) - Left Hand Blood Culture - Final No growth in 5 days. 02/28/21 23:20 Blood Culture (Wb) - Anticubital Left Blood Culture - Final No growth in 5 days. 03/01/21 00:05 Urine, Clean Catch Urine Culture - Final Culture exhibits no growth. 03/02/21 10:52 Urine, Random Streptococcus pneumoniae Antigen (M - Final 03/02/21 10:52 Urine, Clean Catch Legionella Antigen - Final 02/28/21 23:34 Nasal Secretion SARS-CoV-2 Antigen (Rapid) - Final Physical Exam Const alert and no apparent distress General Appearance: cooperative HEENT normocephalic, head/scalp atraumatic and moist oral mucous membranes Eyes PERRL, EOMs intact bilaterally and conjunctivae normal Neck supple General: trachea midline Resp no use of accessory muscles Effort and Inspection: able to speak in complete sentences Auscultation: diminished lung sounds Cardio regular rate and regular rhythm GI normal to inspection, nondistended, normoactive bowel sounds Extremity no clubbing, cyanosis or edema Skin no rashes or lesions noted Neuro CN's II-XII intact bilaterally, moves all extremities and no focal motor deficits Psych cooperative and affect normal Charges/Coding Visit Charges Inpatient E&M: 27100 Subs Hosp L3
[2021-03-06] MEDS: dexAMETHasone 2 MG TABLET 6 MG PO (10:34)
[2021-03-06] MEDS: guaiFENesin 1,200 MG Tablet 1200 MG PO ×2 (10:34→21:09)
[2021-03-06] MEDS: Lisinopril 5 MG Tablet PO (10:34)
[2021-03-06] MEDS: Tamsulosin HCl 0.4 MG Capsule PO (10:34)
[2021-03-06] MEDS: Finasteride 5 MG Tablet PO (10:34)
[2021-03-06] MEDS: Bisoprolol Fumarate 5 MG Tablet PO (10:34)
[2021-03-06] MEDS: Enoxaparin 30 MG/0.3 ML Syringe SC ×2 (10:35→21:09)
[2021-03-06] MEDS: Insulin Lispro 100 UNIT/ML INSULN.PEN SC ×4 (10:43→21:09)
[2021-03-06] MEDS: 0.9% Saline Lock 10 ML Syringe IV (10:45)
[2021-03-06] MEDS: Furosemide 40 MG/4 ML Vial IV (10:45)
[2021-03-06 11:05] LABS: Bedside Glucose 185 mg/dL (70-110)
--- NOTE | 2021-03-06 11:07 | PN.HOSP_ITS ---
Subjective Subjective Patient seen and examined. He had no active complaints today and felt well. Review of systems is otherwise negative. he is on 15L of oxygen and is off BIPAP now. Objective Data Objective Data Vital Signs: Vital Signs Temp Pulse Resp BP Pulse Ox 98.3 F 76 20 H 112/71 92 03/06/21 10:00 03/06/21 10:00 03/06/21 10:00 03/06/21 10:00 03/06/21 10:00 Oxygen Flow Rate (L/min) 15 Oxygen Delivery Method Nasal Cannula Weight: 197 lb 12.074 oz Body Mass Index (BMI) 25.4 Intake & Output: Intake and Output for Last 24 Hours 03/04/21 03/05/21 03/06/21 23:59 23:59 23:59 Intake Total 1090 / 1090 1550 / 1550 0 / 0 Output Total 1000 / 1000 1600 / 1600 600 / 600 Balance 90 / 90 -50 / -50 -600 / -600 Medical Nutrition Assessment Dietitian: Malnutrition Criteria Met Start: 03/01/21 15:00 Freq: Status: Active Protocol: Document 03/01/21 15:00 RMA (Rec: 03/01/21 15:00 RMA [id number]) Nutrition Malnutrition Evidence of Malnutrition Exists Yes Malnutrition (severe): Acute Illness/Injury Evidenced By Suboptimal Energy Intake ( Severe),Weight Loss (Severe) Clinical Problem Acute Disease or Injury Related Malnutrition Etiology Severe protein-calorie malnutrition in the context of acute illness 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 Status Active Problem Recommendation Dietitian Recommendations/Changes Will change diet to 2000 calorie; consistent carbohydrate. Will d/c ensure enlive w/ medpass. Will add 120ml glucerna shake TID w/ meals. Liberalize diet and add ONS as needed to prevent further wt loss if PO does not improve at meals. Lab / Micro Data Result Diagrams: 03/06/21 07:20 03/06/21 07:20 Labs: Laboratory Results - last 24 hr 03/05/21 06:22: C-React Prot Ext Range 126.00 H 03/05/21 06:22: B-Natriuretic Peptide 38.4 03/05/21 12:11: POC Glucose 191 H 03/05/21 14:00: D-Dimer Quant (PE/DVT) 0.41 03/05/21 16:04: Procalcitonin 0.06 03/05/21 17:25: POC Glucose 308 H 03/05/21 22:23: POC Glucose 299 H 03/06/21 07:20: WBC 11.2 H, RBC 4.32 L, Hgb 13.4, Hct 39.4 L, MCV 91.2, MCH 31.0, MCHC 34.0, RDW Std Deviation 38.8, RDW Coeff of Eh 11.6, Plt Count 325, MPV 10.8, Immature Gran % (Auto) 3.600 H, Neut % (Auto) 77.7 H, Lymph % (Auto) 9.4 L, [place] % (Auto) 7.4, Eos % (Auto) 1.4, Baso % (Auto) 0.5, Absolute Neuts (auto) 8.7 H, Absolute Lymphs (auto) 1.05, Nucleated RBC % 0 03/06/21 07:20: Sodium 137, Potassium 4.7, Chloride 104, Carbon Dioxide 30.0, Anion Gap 3 L, BUN 20 H, Creatinine 0.59 L, Estim Creat Clear Calc 152.87, Est GFR (MDRD) Af Amer 179, Est GFR (MDRD) Non-Af 148, BUN/Creatinine Ratio 33.7 H, Glucose 129 H, Calcium 8.6, Total Bilirubin 0.70, AST 12 L, ALT 30, Alkaline Phosphatase 69, Total Protein 6.7, Albumin 2.0 L, Globulin 4.7 H, Albumin/Globulin Ratio 0.4 L 03/06/21 10:23: POC Glucose 185 H Micro: Microbiology 02/28/21 23:32 Blood Culture (Wb) - Left Hand Blood Culture - Final No growth in 5 days. 02/28/21 23:20 Blood Culture (Wb) - Anticubital Left Blood Culture - Final No growth in 5 days. 03/01/21 00:05 Urine, Clean Catch Urine Culture - Final Culture exhibits no growth. 03/02/21 10:52 Urine, Random Streptococcus pneumoniae Antigen (M - Final 03/02/21 10:52 Urine, Clean Catch Legionella Antigen - Final 02/28/21 23:34 Nasal Secretion SARS-CoV-2 Antigen (Rapid) - Final Physical Exam Const alert, oriented x3 and no apparent distress Exam Limitations: no limitations HEENT head/scalp atraumatic, moist oral mucous membranes and oropharynx normal Head and Scalp: normocephalic Eyes PERRL, EOMs intact bilaterally and conjunctivae normal Neck no lymphadenopathy Resp Resp Narrative: diminished breath sounds bibasally, few crackles, no wheezing. On 15L of oxygen. Cardio regular rate, regular rhythm, S1 normal heart sound, S2 normal heart sound and no murmurs GI normal to inspection, nondistended, normoactive bowel sounds, soft to palpation, non-tender and non-distended Extremity normal to inspection, full ROM and no clubbing, cyanosis or edema Peripheral Pulses: Yes pulses 2+ throughout Skin no rashes or lesions noted Neuro oriented x3, CN's II-XII intact bilaterally and moves all extremities Sensorium / Orientation: awake and alert Psych affect normal Assessment & Plan Assessment/Plan (1) Pneumonia due to COVID-19 virus: (2) Acute respiratory failure with hypoxia: (3) Suspected COVID-19 virus infection: PLAN: #Acute hypoxic respiratory failure due to COVID 19 pneumonia * now off BIPAP and on 15L of oxygen by nasal canula. He is unvaccinated * Has completed remdesivir. On Decadron. * Titrate oxygen to maintain saturation above 90%. Breathing treatments with bronchodilators. * ID and pulmonology on board. * diurese as needed to maintain euvolemic satus * #Type 2 diabetes mellitus: * on lantus 40 units qhs. * Insulin sliding scale. * Accuchecks AC at bedtime. * #Severe malnutrition: * Nutrition on board. On 2000-calorie diet with consistent carbohydrate and Glucerna shake supplements 3 times daily. * Hypertension: On bisoprolol and hydrochlorothiazide as well as lisinopril #Hyperlipidemia: On statin DVT prophylaxis: lovenox 30mg bid Charges/Coding Visit Charges Inpatient E&M: 86201 [facility] Hosp L3
[2021-03-06 13:10] LABS: Bedside Glucose 206 mg/dL (70-110)
[2021-03-06 16:40] LABS: Bedside Glucose 360 mg/dL (70-110)
[2021-03-06] MEDS: Atorvastatin Calcium 20 MG Tablet PO (21:09)
[2021-03-06 22:10] LABS: Bedside Glucose 353 mg/dL (70-110)
[2021-03-07] VITALS (12 sets, daily range): BP systolic 107–115; BP diastolic 72–77; PULSE 58–77; RESP 18–24; TEMP 36.5–36.6; O2SAT 93–95
[2021-03-07 06:11] LABS: Absolute Lymphocyte Count 0.87 X10^3/uL (0.83-4.51); Absolute Neutrophil Count 7.9 X10^3/uL (2.0-7.7); Basophil# 0.04 X10^3/uL; Basophil% 0.4 % (0-1); Eosinophil# 0.14 X10^3/uL; Eosinophils% 1.4 % (0-5); Hematocrit 40.5 % (40-54); Hemoglobin 13.7 g/dL (13.0-16.5); Lymphocyte # 0.87 X10^3/ul (0.83-4.51); Lymphocyte % 8.7 % (19-41); Mean Corp Hgb Conc 33.8 g/dL (32-36); Mean Corpuscular Hgb 30.7 pg (27.0-32.0); Mean Corpuscular Volume 90.8 fL (80-94); Mean Platelet Vol. 10.8 fl (6.2-12.0); Monocyte# 0.86 X10^3/uL; Monocyte% 8.6 % (0-10); NRBC Flagged by Analyzer 0 % (0-5); Neutrophil # 7.85 X10^3/uL (2.7-7.7); Platelet Count 380 K/mm3 (150-450); RBC Distribution Width CV 11.4 % (11.6-14.6); RBC Distribution Width SD 38.5 fl (35.1-43.9); Red Blood Count 4.46 M/mm3 (4.6-6.2); White Blood Count 10.1 K/mm3 (4.4-11.0)
[2021-03-07 06:54] LABS: ALB/GLOB Ratio 0.4 RATIO (0.9-2.4); AST(SGOT) 11 U/L (15-37); Alanine Aminotransfer ALT/SGPT 30 U/L (16-61); Alkaline Phosphatase 80 U/L (45-117); Anion Gap 5 (5-15); BUN 28 mg/dL (7-18); BUN/Creat Ratio 46.9 RATIO (10-20); Calcium,Total 8.5 mg/dL (8.5-10.1); Chloride 104 mmol/L (98-107); EST Glomerular Filtration Rate 146 mL/min (>60); Est Glom Filt Rate - Afr Amer 177 mL/min (>60); Estimated Creatinine Clearance 150.32 ml/min; Globulin 4.9 g/dL (2.2-4.2); Glucose 169 mg/dL (74-106); Potassium 4.5 mmol/L (3.5-5.1); Protein, Total 6.9 g/dL (6.4-8.2); Sodium Level 135 mmol/L (136-145)
[2021-03-07] MEDS: dexAMETHasone 2 MG TABLET 6 MG PO (08:25)
[2021-03-07] MEDS: Tamsulosin HCl 0.4 MG Capsule PO (08:25)
[2021-03-07] MEDS: Bisoprolol Fumarate 5 MG Tablet PO (08:25)
[2021-03-07] MEDS: guaiFENesin 1,200 MG Tablet 1200 MG PO ×2 (08:26→22:46)
[2021-03-07] MEDS: Finasteride 5 MG Tablet PO (08:26)
[2021-03-07] MEDS: Lisinopril 5 MG Tablet PO (08:26)
[2021-03-07] MEDS: Enoxaparin 30 MG/0.3 ML Syringe SC ×2 (08:28→22:50)
[2021-03-07 08:36] LABS: Bedside Glucose 147 mg/dL (70-110)
--- NOTE | 2021-03-07 11:11 | PN.HOSP_ITS ---
Subjective Subjective Patient seen and examined. He has no active complaints today. He was saturating at around 88% to 90% on 13 L so he was bumped up to 15 L of oxygen. He has no other complaints and review of systems otherwise negative. He is in cumulative negative balance by 539 mls Objective Data Objective Data Vital Signs: Vital Signs Temp Pulse Resp BP Pulse Ox 97.9 F 73 20 H 107/75 94 03/07/21 08:25 03/07/21 08:25 03/07/21 08:25 03/07/21 08:25 03/07/21 08:25 Oxygen Flow Rate (L/min) 13 Oxygen Delivery Method Nasal Cannula Weight: 197 lb 12.074 oz Body Mass Index (BMI) 25.4 Intake & Output: Intake and Output for Last 24 Hours 03/05/21 03/06/21 03/07/21 23:59 23:59 23:59 Intake Total 1550 / 1550 880 / 880 Output Total 1600 / 1600 5975 / 5975 400 / 400 Balance -50 / -50 -5095 / -5095 -400 / -400 Medical Nutrition Assessment Dietitian: Malnutrition Criteria Met Start: 03/01/21 15:00 Freq: Status: Active Protocol: Document 03/01/21 15:00 RMA (Rec: 03/01/21 15:00 RMA [id number]) Nutrition Malnutrition Evidence of Malnutrition Exists Yes Malnutrition (severe): Acute Illness/Injury Evidenced By Suboptimal Energy Intake ( Severe),Weight Loss (Severe) Clinical Problem Acute Disease or Injury Related Malnutrition Etiology Severe protein-calorie malnutrition in the context of acute illness related to poor appetite and inadequate 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 Status Active Problem Recommendation Dietitian Recommendations/Changes Will change diet to 2000 calorie; consistent carbohydrate. Will d/c ensure enlive w/ medpass. Will add 120ml glucerna shake TID w/ meals. Liberalize diet and add ONS as needed to prevent further wt loss if PO does not improve at meals. Lab / Micro Data Result Diagrams: 03/07/21 05:20 03/07/21 05:20 Labs: Laboratory Results - last 24 hr 03/06/21 13:00: POC Glucose 206 H 03/06/21 16:34: POC Glucose 360 H 03/06/21 21:07: POC Glucose 353 H 03/07/21 05:20: WBC 10.1, RBC 4.46 L, Hgb 13.7, Hct 40.5, MCV 90.8, MCH 30.7, MCHC 33.8, RDW Std Deviation 38.5, RDW Coeff of Eh 11.4 L, Plt Count 380, MPV 10.8, Immature Gran % (Auto) 2.900 H, Neut % (Auto) 78.0 H, Lymph % (Auto) 8.7 L , [place] % (Auto) 8.6, Eos % (Auto) 1.4, Baso % (Auto) 0.4, Absolute Neuts (auto) 7.9 H, Absolute Lymphs (auto) 0.87, Nucleated RBC % 0 03/07/21 05:20: Sodium 135 L, Potassium 4.5, Chloride 104, Carbon Dioxide 26.0, Anion Gap 5, BUN 28 H, Creatinine 0.60 L, Estim Creat Clear Calc 150.32, Est GFR (MDRD) Af Amer 177, Est GFR (MDRD) Non-Af 146, BUN/Creatinine Ratio 46.9 H, Glucose 169 H, Calcium 8.5, Total Bilirubin 0.70, AST 11 L, ALT 30, Alkaline Phosphatase 80, Total Protein 6.9, Albumin 2.0 L, Globulin 4.9 H, Albumin/Globulin Ratio 0.4 L 03/07/21 08:13: POC Glucose 147 H Micro: Microbiology 03/04/21 16:51 Blood Culture (Wb) - Anticubital Right Blood Culture - Pr eliminary No growth in 48 hours. 02/28/21 23:32 Blood Culture (Wb) - Left Hand Blood Culture - Final No growth in 5 days. 02/28/21 23:20 Blood Culture (Wb) - Anticubital Left Blood Culture - Final No growth in 5 days. 03/01/21 00:05 Urine, Clean Catch Urine Culture - Final Culture exhibits no growth. 03/02/21 10:52 Urine, Random Streptococcus pneumoniae Antigen (M - Final 03/02/21 10:52 Urine, Clean Catch Legionella Antigen - Final 02/28/21 23:34 Nasal Secretion SARS-CoV-2 Antigen (Rapid) - Final Physical Exam Const alert, oriented x3 and no apparent distress Exam Limitations: no limitations HEENT head/scalp atraumatic, moist oral mucous membranes and oropharynx normal Head and Scalp: normocephalic Eyes PERRL, EOMs intact bilaterally and conjunctivae normal Neck no lymphadenopathy Resp Resp Narrative: diminished breath sounds bibasally, few crackles, no wheezing. On 15L of oxygen. Cardio regular rate, regular rhythm, S1 normal heart sound, S2 normal heart sound and no murmurs GI normal to inspection, nondistended, normoactive bowel sounds, soft to palpation, non-tender and non-distended Extremity normal to inspection, full ROM and no clubbing, cyanosis or edema Skin no rashes or lesions noted Neuro oriented x3, CN's II-XII intact bilaterally and moves all extremities Sensorium / Orientation: awake and alert Psych affect normal Assessment & Plan Assessment/Plan (1) Pneumonia due to COVID-19 virus: (2) Acute respiratory failure with hypoxia: (3) Suspected COVID-19 virus infection: PLAN: #Acute hypoxic respiratory failure due to COVID 19 pneumonia * still 15L of oxygen by nasal canula. He is unvaccinated * Has completed remdesivir. On Decadron. * Titrate oxygen to maintain saturation above 90%. Breathing treatments with bronchodilators. * ID and pulmonology on board. * diurese as needed to maintain euvolemic satus * #Type 2 diabetes mellitus: * on lantus 40 units qhs. * Insulin sliding scale. * Accuchecks AC at bedtime. * #Severe malnutrition: * Nutrition on board. On 2000-calorie diet with consistent carbohydrate and Glucerna shake supplements 3 times daily. * Hypertension: On bisoprolol and hydrochlorothiazide as well as lisinopril #Hyperlipidemia: On statin DVT prophylaxis: lovenox 30mg bid Charges/Coding Visit Charges Inpatient E&M: 88236 Subs Hosp L3
[2021-03-07] MEDS: Insulin Lispro 100 UNIT/ML INSULN.PEN SC ×3 (12:08→22:43)
[2021-03-07 12:20] LABS: Bedside Glucose 348 mg/dL (70-110)
[2021-03-07 18:11] LABS: Bedside Glucose 302 mg/dL (70-110)
[2021-03-07] MEDS: Atorvastatin Calcium 20 MG Tablet PO (22:46)
[2021-03-07] MEDS: Acetaminophen 325 MG Tablet 650 MG PO (22:46)
[2021-03-08] VITALS (13 sets, daily range): BP systolic 111–124; BP diastolic 70–86; PULSE 59–85; RESP 16–22; TEMP 36.1–36.7; O2SAT 93–98
[2021-03-08 04:16] LABS: Bedside Glucose 310 mg/dL (70-110)
[2021-03-08] MEDS: Acetaminophen 325 MG Tablet 650 MG PO ×3 (06:45→23:35)
[2021-03-08] MEDS: Sodium Chloride 0.65% 1 SPRAY SPRAY.BTL NASAL (06:45)
[2021-03-08 07:32] LABS: Absolute Neutrophil Count 7.9 X10^3/uL (2.0-7.7); Basophil# 0.02 X10^3/uL; Basophil% 0.2 % (0-1); Eosinophil# 0.16 X10^3/uL; Eosinophils% 1.6 % (0-5); Hematocrit 38.5 % (40-54); Hemoglobin 13.6 g/dL (13.0-16.5); Lymphocyte % 8.7 % (19-41); Mean Corp Hgb Conc 35.3 g/dL (32-36); Mean Corpuscular Hgb 31.9 pg (27.0-32.0); Mean Corpuscular Volume 90.4 fL (80-94); Mean Platelet Vol. 10.3 fl (6.2-12.0); Monocyte# 1.09 X10^3/uL; Monocyte% 10.6 % (0-10); NRBC Flagged by Analyzer 0 % (0-5); Neutrophil # 7.93 X10^3/uL (2.7-7.7); Neutrophil % 77.1 % (47-70); Platelet Count 386 K/mm3 (150-450); RBC Distribution Width CV 11.6 % (11.6-14.6); RBC Distribution Width SD 38.5 fl (35.1-43.9); Red Blood Count 4.26 M/mm3 (4.6-6.2); White Blood Count 10.3 K/mm3 (4.4-11.0)
[2021-03-08 07:52] LABS: ALB/GLOB Ratio 0.4 RATIO (0.9-2.4); AST(SGOT) 11 U/L (15-37); Alanine Aminotransfer ALT/SGPT 29 U/L (16-61); Albumin, Serum 2.1 g/dL (3.2-5.0); Alkaline Phosphatase 73 U/L (45-117); Anion Gap 7 (5-15); BUN 23 mg/dL (7-18); BUN/Creat Ratio 31.4 RATIO (10-20); Calcium,Total 8.3 mg/dL (8.5-10.1); Chloride 99 mmol/L (98-107); Creatinine, Serum 0.73 mg/dL (0.70-1.30); EST Glomerular Filtration Rate 116 mL/min (>60); Est Glom Filt Rate - Afr Amer 140 mL/min (>60); Estimated Creatinine Clearance 123.55 ml/min; Globulin 4.9 g/dL (2.2-4.2); Glucose 155 mg/dL (74-106); Potassium 4.4 mmol/L (3.5-5.1); Sodium Level 134 mmol/L (136-145)
[2021-03-08] MEDS: Lisinopril 5 MG Tablet PO (08:09)
[2021-03-08] MEDS: Enoxaparin 30 MG/0.3 ML Syringe SC ×2 (08:09→22:19)
[2021-03-08] MEDS: dexAMETHasone 2 MG TABLET 6 MG PO (08:09)
[2021-03-08] MEDS: Bisoprolol Fumarate 5 MG Tablet PO (08:09)
[2021-03-08] MEDS: Tamsulosin HCl 0.4 MG Capsule PO (08:10)
[2021-03-08] MEDS: Finasteride 5 MG Tablet PO (08:10)
[2021-03-08] MEDS: guaiFENesin 1,200 MG Tablet 1200 MG PO ×2 (08:10→22:19)
[2021-03-08 08:25] LABS: Bedside Glucose 149 mg/dL (70-110)
[2021-03-08] MEDS: Insulin Lispro 100 UNIT/ML INSULN.PEN SC ×3 (12:01→22:25)
[2021-03-08 12:26] LABS: Bedside Glucose 342 mg/dL (70-110)
--- NOTE | 2021-03-08 12:40 | PN.HOSP_ITS ---
Subjective Subjective Patient seen and examined. He had no active complaints today. He had an uneventful night. His oxygen requirements are down to 8 L from 15 L yesterday. Review of systems otherwise negative. Objective Data Objective Data Vital Signs: Vital Signs Temp Pulse Resp BP Pulse Ox 96.9 F L 78 18 112/78 94 03/08/21 12:07 03/08/21 12:07 03/08/21 12:07 03/08/21 12:07 03/08/21 12:07 Oxygen Flow Rate (L/min) 6 Oxygen Delivery Method Nasal Cannula Weight: 197 lb 12.074 oz Body Mass Index (BMI) 25.4 Intake & Output: Intake and Output for Last 24 Hours 03/06/21 03/07/21 03/08/21 23:59 23:59 23:59 Intake Total 880 / 880 1280 / 1680 880 / 880 Output Total 5975 / 5975 2450 / 2650 200 / 200 Balance -5095 / -5095 -1170 / -970 680 / 680 Medical Nutrition Assessment Dietitian: Malnutrition Criteria Met Start: 03/01/21 1 5:00 Freq: Status: Active Protocol: Document 03/01/21 15:00 RMA (Rec: 03/01/21 15:00 RMA [id number]) Nutrition Malnutrition Evidence of Malnutrition Exists Yes Malnutrition (severe): Acute Illness/Injury Evidenced By Suboptimal Energy Intake ( Severe),Weight Loss (Severe) Clinical Problem Acute Disease or Injury Related Malnutrition Etiology Severe protein-calorie malnutrition in the context of acute illness related to poor appetite and 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 Status Active Problem Recommendation Dietitian Recommendations/Changes Will change diet to 2000 calorie; consistent carbohydrate. Will d/c ensure enlive w/ medpass. Will add 120ml glucerna shake TID w/ meals. Liberalize diet and add ONS as needed to prevent further wt loss if PO does not improve at meals. Lab / Micro Data Result Diagrams: 03/08/21 06:55 03/08/21 06:55 Labs: Laboratory Results - last 24 hr 03/07/21 17:54: POC Glucose 302 H 03/07/21 22:41: POC Glucose 310 H 03/08/21 06:55: WBC 10.3, RBC 4.26 L, Hgb 13.6, Hct 38.5 L, MCV 90.4, MCH 31.9, MCHC 35.3, RDW Std Deviation 38.5, RDW Coeff of Eh 11.6, Plt Count 386, MPV 10.3, Immature Gran % (Auto) 1.800 H, Neut % (Auto) 77.1 H, Lymph % (Auto) 8.7 L , [place] % (Auto) 10.6 H, Eos % (Auto) 1.6, Baso % (Auto) 0.2, Absolute Neuts (auto) 7.9 H, Absolute Lymphs (auto) 0.90, Nucleated RBC % 0 03/08/21 06:55: Sodium 134 L, Potassium 4.4, Chloride 99, Carbon Dioxide 28.0, Anion Gap 7, BUN 23 H, Creatinine 0.73, Estim Creat Clear Calc 123.55, Est GFR (MDRD) Af Amer 140, Est GFR (MDRD) Non-Af 116, BUN/Creatinine Ratio 31.4 H, Glucose 155 H, Calcium 8.3 L, Total Bilirubin 0.70, AST 11 L, ALT 29, Alkaline Phosphatase 73, Total Protein 7.0, Albumin 2.1 L, Globulin 4.9 H, Al bumin/Globulin Ratio 0.4 L 03/08/21 08:03: POC Glucose 149 H 03/08/21 11:59: POC Glucose 342 H Micro: Microbiology 03/04/21 16:51 Blood Culture (Wb) - Anticubital Right Blood Culture - Preliminary No growth in 48 hours. 02/28/21 23:32 Blood Culture (Wb) - Left Hand Blood Culture - Final No growth in 5 days. 02/28/21 23:20 Blood Culture (Wb) - Anticubital Left Blood Culture - Final No growth in 5 days. 03/01/21 00:05 Urine, Clean Catch Urine Culture - Final Culture exhibits no growth. 03/02/21 10:52 Urine, Random Streptococcus pneumoniae Antigen (M - Final 03/02/21 10:52 Urine, Clean Catch Legionella Antigen - Final 02/28/21 23:34 Nasal Secretion SARS-CoV-2 Antigen (Rapid) - Final Physical Exam Const alert, oriented x3 and no apparent distress Exam Limitations: no limitations HEENT head/scalp atraumatic, moist oral mucous membranes and oropharynx normal Head and Scalp: normocephalic Eyes PERRL, EOMs intact bilaterally and conjunctivae normal Neck no lymphadenopathy Resp Resp Narrative: diminished breath sounds bibasally, few crackles, no wheezing. On 8L of oxygen. Cardio regular rate, regular rhythm, S1 normal heart sound, S2 normal heart sound and no murmurs GI normal to inspection, nondistended, normoactive bowel sounds, soft to palpation, non-tender and non-distended Extremity normal to inspection, full ROM and no clubbing, cyanosis or edema Peripheral Pulses: Yes pulses 2+ throughout Skin no rashes or lesions noted Neuro oriented x3, CN's II-XII intact bilaterally and moves all extremities Sensorium / Orientation: awake and alert Psych affect normal Assessment & Plan Assessment/Plan (1) Pneumonia due to COVID-19 virus: (2) Acute respiratory failure with hypoxia: (3) Suspected COVID-19 virus infection: PLAN: #Acute hypoxic respiratory failure due to COVID 19 pneumonia * now down to 8L of oxygen. * Has completed remdesivir. On Decadron. * Titrate oxygen to maintain saturation above 90%. Breathing treatments with bronchodilators. * ID and pulmonology on board. * diurese as needed to maintain euvolemic satus * #Type 2 diabetes mellitus: * on lantus 40 units qhs. * Insulin sliding scale. * Accuchecks AC at bedtime. * #Severe malnutrition: * Nutrition on board. On 2000-calorie diet with consistent carbohydrate and Glucerna shake supplements 3 times daily. * Hypertension: On bisoprolol and hydrochlorothiazide as well as lisinopril #Hyperlipidemia: On statin DVT prophylaxis: lovenox 30mg bid Charges/Coding Visit Charges Inpatient E&M: 18696 Subs Hosp L2
[2021-03-08 17:50] LABS: Bedside Glucose 330 mg/dL (70-110)
[2021-03-08] MEDS: Atorvastatin Calcium 20 MG Tablet PO (22:19)
[2021-03-08 23:16] LABS: Bedside Glucose 334 mg/dL (70-110)
[2021-03-09 05:00] VITALS: BP 113/74; PULSE 56; RESP 16; TEMP 36.8; O2SAT 96
[2021-03-09 06:56] LABS: Absolute Lymphocyte Count 1.15 X10^3/uL (0.83-4.51); Absolute Neutrophil Count 5.9 X10^3/uL (2.0-7.7); Basophil# 0.03 X10^3/uL; Basophil% 0.4 % (0-1); Eosinophil# 0.18 X10^3/uL; Eosinophils% 2.1 % (0-5); Hematocrit 38.9 % (40-54); Hemoglobin 13.1 g/dL (13.0-16.5); Lymphocyte # 1.15 X10^3/ul (0.83-4.51); Lymphocyte % 13.7 % (19-41); Mean Corp Hgb Conc 33.7 g/dL (32-36); Mean Corpuscular Hgb 30.8 pg (27.0-32.0); Mean Corpuscular Volume 91.3 fL (80-94); Mean Platelet Vol. 10.2 fl (6.2-12.0); Monocyte# 1.01 X10^3/uL; NRBC Flagged by Analyzer 0 % (0-5); Neutrophil # 5.87 X10^3/uL (2.7-7.7); Neutrophil % 69.7 % (47-70); Platelet Count 375 K/mm3 (150-450); RBC Distribution Width CV 11.4 % (11.6-14.6); RBC Distribution Width SD 38.4 fl (35.1-43.9); Red Blood Count 4.26 M/mm3 (4.6-6.2); White Blood Count 8.4 K/mm3 (4.4-11.0)
[2021-03-09 07:00] LABS: Bedside Glucose 133 mg/dL (70-110)
[2021-03-09 07:19] LABS: ALB/GLOB Ratio 0.4 RATIO (0.9-2.4); AST(SGOT) 10 U/L (15-37); Alanine Aminotransfer ALT/SGPT 31 U/L (16-61); Alkaline Phosphatase 70 U/L (45-117); Anion Gap 3 (5-15); BUN 22 mg/dL (7-18); BUN/Creat Ratio 36.7 RATIO (10-20); Calcium,Total 8.4 mg/dL (8.5-10.1); Chloride 104 mmol/L (98-107); EST Glomerular Filtration Rate 146 mL/min (>60); Est Glom Filt Rate - Afr Amer 177 mL/min (>60); Estimated Creatinine Clearance 150.32 ml/min; Globulin 4.6 g/dL (2.2-4.2); Glucose 136 mg/dL (74-106); Potassium 4.8 mmol/L (3.5-5.1); Protein, Total 6.6 g/dL (6.4-8.2); Sodium Level 136 mmol/L (136-145)
[2021-03-09 10:27] VITALS: BP 120/69; PULSE 89; RESP 18; TEMP 36.8; O2SAT 92
[2021-03-09] MEDS: guaiFENesin 1,200 MG Tablet 1200 MG PO ×2 (10:34→22:17)
[2021-03-09] MEDS: Finasteride 5 MG Tablet PO (10:34)
[2021-03-09] MEDS: Bisoprolol Fumarate 5 MG Tablet PO (10:34)
[2021-03-09] MEDS: Enoxaparin 30 MG/0.3 ML Syringe SC ×2 (10:34→22:17)
[2021-03-09] MEDS: dexAMETHasone 2 MG TABLET 6 MG PO (10:35)
[2021-03-09] MEDS: Lisinopril 5 MG Tablet PO (10:35)
[2021-03-09] MEDS: Tamsulosin HCl 0.4 MG Capsule PO (10:35)
[2021-03-09 10:48] VITALS: O2SAT 86; O2SAT 89; O2SAT 90
[2021-03-09] MEDS: Insulin Lispro 100 UNIT/ML INSULN.PEN SC ×3 (11:57→22:19)
--- NOTE | 2021-03-09 12:05 | PN.HOSP_ITS ---
Subjective Subjective Patient seen and examined. He is feeling much better today. He is down to 5 L of oxygen. He had an uneventful night and review of systems otherwise negative. Objective Data Objective Data Vital Signs: Vital Signs Temp Pulse Resp BP Pulse Ox 98.3 F 89 18 120/69 86 03/09/21 10:27 03/09/21 10:27 03/09/21 10:27 03/09/21 10:27 03/09/21 10:48 Oxygen Flow Rate (L/min) [ 6 AMBULATING with Oxygen #3] Oxygen Flow Rate (L/min) [ 4 AMBULATING with Oxygen #2] Oxygen Flow Rate (L/min) [ 2 AMBULATING with Oxygen #1] Oxygen Flow Rate (L/min) [At 2 REST with Oxygen] Oxygen Flow Rate (L/min) 4 Oxygen Delivery Method Nasal Cannula Weight: 197 lb 12.074 oz Body Mass Index (BMI) 25.4 Intake & Output: Intake and Output for Last 24 Hours 03/07/21 03/08/21 03/09/21 23:59 23:59 23:59 Intake Total 1280 / 1680 1120 / 1120 Output Total 2450 / 2650 1650 / 1650 500 / 500 Balance -1170 / -970 -530 / -530 -500 / -500 Medical Nutrition Assessment Dietitian: Malnutrition Criteria Met Start: 03/01/21 15:00 Freq: Status: Active Protocol: Document 03/01/21 15:00 RMA (Rec: 03/01/21 15:00 RMA [id number]) Nutrition Malnutrition Evidence of Malnutrition Exists Yes Malnutrition (severe): Acute Illness/Injury Evidenced By Suboptimal Energy Intake ( Severe),Weight Loss (Severe) Clinical Problem Acute Disease or Injury Related Malnutrition Etiology Severe protein-calorie malnutrition in the context of acute illness related to poor appetite 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 Status Active Problem Recommendation Dietitian Recommendations/Changes Will change diet to 2000 calorie; consistent carbohydrate. Will d/c ensure enlive w/ medpass. Will add 120ml glucerna shake TID w/ meals. Liberalize diet and add ONS as needed to prevent further wt loss if PO does not improve at meals. Lab / Micro Data Result Diagrams: 03/09/21 06:45 03/09/21 06:45 Labs: Laboratory Results - last 24 hr 03/08/21 11:59: POC Glucose 342 H 03/08/21 17:27: POC Glucose 330 H 03/08/21 22:23: POC Glucose 334 H 03/09/21 06:41: POC Glucose 133 H 03/09/21 06:45: WBC 8.4, RBC 4.26 L, Hgb 13.1, Hct 38.9 L, MCV 91.3, MCH 30.8, MCHC 33.7, RDW Std Deviation 38.4, RDW Coeff of Eh 11.4 L, Plt Count 375, MPV 10.2, Immature Gran % (Auto) 2.100 H, Neut % (Auto) 69.7, Lymph % (Auto) 13.7 L, [place] % (Auto) 12.0 H, Eos % (Auto) 2.1, Baso % (Auto) 0.4, Absolute Neuts (auto) 5.9, Absolute Lymphs (auto) 1.15, Nucleated RBC % 0 03/09/21 06:45: Sodium 136, Potassium 4.8, Chloride 104, Carbon Dioxide 29.0, Anion Gap 3 L, BUN 22 H, Creatinine 0.60 L, Estim Creat Clear Calc 150.32, Est GFR (MDRD) Af Amer 177, Est GFR (MDRD) Non-Af 146, BUN/Creatinine Ratio 36.7 H, Glucose 136 H, Calcium 8.4 L, Total Bilirubin 0.70, AST 10 L, ALT 31, Alkaline Phosphatase 70, Total Protein 6.6, Albumin 2.0 L, Globulin 4.6 H, Albumin/Globulin Ratio 0.4 L Micro: Microbiology 03/04/21 16:51 Blood Culture (Wb) - Anticubital Right Blood Culture - Preliminary No growth in 48 hours. 02/28/21 23:32 Blood Culture (Wb) - Left Hand Blood Culture - Final No growth in 5 days. 02/28/21 23:20 Blood Culture (Wb) - Anticubital Left Blood Culture - Final No growth in 5 days. 03/01/21 00:05 Urine, Clean Catch Urine Culture - Final Culture exhibits no growth. 03/02/21 10:52 Urine, Random Streptococcus pneumoniae Antigen (M - Final 03/02/21 10:52 Urine, Clean Catch Legionella Antigen - Final 02/28/21 23:34 Nasal Secretion SARS-CoV-2 Antigen (Rapid) - Final Physical Exam Const alert, oriented x3 and no apparent distress Exam Limitations: no limitations HEENT head/scalp atraumatic, moist oral mucous membranes and oropharynx normal Eyes PERRL, EOMs intact bilaterally and conjunctivae normal Neck no lymphadenopathy Resp Resp Narrative: diminished breath sounds bibasally, few crackles, no wheezing. On 5L of oxygen. Cardio regular rate, regular rhythm, S1 normal heart sound, S2 normal heart sound and no murmurs GI normal to inspection, nondistended, normoactive bowel sounds, soft to palpation, non-tender and non-distended Extremity normal to inspection, full ROM and no clubbing, cyanosis or edema Peripheral Pulses: Yes pulses 2+ throughout Skin no rashes or lesions noted Neuro oriented x3, CN's II-XII intact bilaterally and moves all extremities Sensorium / Orientation: awake and alert Psych affect normal Assessment & Plan Assessment/Plan (1) Pneumonia due to COVID-19 virus: (2) Acute respiratory failure with hypoxia: (3) Suspected COVID-19 virus infection: PLAN: #Acute hypoxic respiratory failure due to COVID 19 pneumonia * now down to 5L of oxygen. * Has completed remdesivir. On Decadron. * Titrate oxygen to maintain saturation above 90%. Breathing treatments with bronchodilators. * ID and pulmonology on board. * diurese as needed to maintain euvolemic status * Required up to 6 L of oxygen today with ambulation. I think I will keep patient 1 more day to optimize him further. * #Type 2 diabetes mellitus: * on lantus 40 units qhs. * Insulin sliding scale. * Accuchecks AC at bedtime. * #Severe malnutrition: * Nutrition on board. On 2000-calorie diet with consistent carbohydrate and G lucerna shake supplements 3 times daily. * Hypertension: On bisoprolol and hydrochlorothiazide as well as lisinopril #Hyperlipidemia: On statin DVT prophylaxis: lovenox 30mg bid Disposition: Anticipate likely discharge tomorrow Charges/Coding Visit Charges Inpatient E&M: 12038 Subs Hosp L2
[2021-03-09 12:06] LABS: Bedside Glucose 248 mg/dL (70-110)
[2021-03-09 17:23] VITALS: BP 97/64; PULSE 82; RESP 16; TEMP 36.6; O2SAT 96
[2021-03-09 17:41] LABS: Bedside Glucose 265 mg/dL (70-110)
[2021-03-09 22:00] VITALS: O2SAT 93
[2021-03-09] MEDS: Atorvastatin Calcium 20 MG Tablet PO (22:17)
[2021-03-09] MEDS: Acetaminophen 325 MG Tablet 650 MG PO (22:18)
[2021-03-09 22:25] VITALS: BP 115/75; PULSE 64; RESP 16; TEMP 36.6; O2SAT 93
[2021-03-09 23:01] LABS: Bedside Glucose 321 mg/dL (70-110)
[2021-03-10 04:31] VITALS: BP 113/74; PULSE 64; RESP 16; TEMP 36.6; O2SAT 92
[2021-03-10 06:58] VITALS: O2SAT 91
[2021-03-10 08:04] LABS: Absolute Lymphocyte Count 1.33 X10^3/uL (0.83-4.51); Absolute Neutrophil Count 5.6 X10^3/uL (2.0-7.7); Basophil# 0.04 X10^3/uL; Basophil% 0.5 % (0-1); Eosinophil# 0.05 X10^3/uL; Eosinophils% 0.6 % (0-5); Hematocrit 39.6 % (40-54); Hemoglobin 13.3 g/dL (13.0-16.5); Lymphocyte # 1.33 X10^3/ul (0.83-4.51); Mean Corp Hgb Conc 33.6 g/dL (32-36); Mean Corpuscular Hgb 30.8 pg (27.0-32.0); Mean Corpuscular Volume 91.7 fL (80-94); Mean Platelet Vol. 10.9 fl (6.2-12.0); Monocyte# 1.03 X10^3/uL; Monocyte% 12.4 % (0-10); NRBC Flagged by Analyzer 0 % (0-5); Neutrophil # 5.61 X10^3/uL (2.7-7.7); Neutrophil % 67.7 % (47-70); Platelet Count 380 K/mm3 (150-450); RBC Distribution Width CV 11.2 % (11.6-14.6); RBC Distribution Width SD 38.3 fl (35.1-43.9); Red Blood Count 4.32 M/mm3 (4.6-6.2); White Blood Count 8.3 K/mm3 (4.4-11.0)
[2021-03-10 08:38] LABS: ALB/GLOB Ratio 0.5 RATIO (0.9-2.4); AST(SGOT) 10 U/L (15-37); Alanine Aminotransfer ALT/SGPT 31 U/L (16-61); Albumin, Serum 2.2 g/dL (3.2-5.0); Alkaline Phosphatase 69 U/L (45-117); Anion Gap 6 (5-15); BUN 22 mg/dL (7-18); BUN/Creat Ratio 32.5 RATIO (10-20); Calcium,Total 8.3 mg/dL (8.5-10.1); Chloride 100 mmol/L (98-107); Creatinine, Serum 0.68 mg/dL (0.70-1.30); EST Glomerular Filtration Rate 127 mL/min (>60); Est Glom Filt Rate - Afr Amer 153 mL/min (>60); Estimated Creatinine Clearance 132.63 ml/min; Globulin 4.8 g/dL (2.2-4.2); Glucose 147 mg/dL (74-106); Potassium 4.9 mmol/L (3.5-5.1); Sodium Level 135 mmol/L (136-145)
[2021-03-10] MEDS: guaiFENesin 1,200 MG Tablet 1200 MG PO (08:47)
[2021-03-10] MEDS: dexAMETHasone 2 MG TABLET 6 MG PO (08:47)
[2021-03-10] MEDS: Enoxaparin 30 MG/0.3 ML Syringe SC (08:47)
[2021-03-10] MEDS: Tamsulosin HCl 0.4 MG Capsule PO (08:47)
[2021-03-10] MEDS: Lisinopril 5 MG Tablet PO (08:47)
[2021-03-10] MEDS: Finasteride 5 MG Tablet PO (08:47)
[2021-03-10] MEDS: Bisoprolol Fumarate 5 MG Tablet PO (08:47)
[2021-03-10 08:49] VITALS: BP 113/75; PULSE 73; RESP 18; TEMP 36.6; O2SAT 97
[2021-03-10 09:14] VITALS: O2SAT 86; O2SAT 88; O2SAT 90; O2SAT 97
[2021-03-10 09:26] LABS: Bedside Glucose 134 mg/dL (70-110)
--- NOTE | 2021-03-10 11:27 | DS.PCM_ITS ---
Providers Date of Admission: 03/01/21 Primary Care Physician: Dr. Clint Horton MD Consultations 03/05/21 11:43 Consult: [employer] / Pulmonary Medicine Routine Consulting Provider: Pulmonary Medicine joey March Reason for Consult: acute hypoxic respiratory failure due to covid EMERGENT Consult: No Notified: Yes Date Notified: 03/05/21 Time Notified: 11:43 Method of Notification: Text 03/05/21 13:48 Consult: Infectious Disease Routine Consulting Provider: Vaibhav Reardon Reason for Consult: acute hyoxic respiratory failure due to covid EMERGENT Consult: No Notified: Yes Date Notified: 03/05/21 Time Notified: 14:57 Method of Notification: Answering Service Reason For Visit: COVID 19 PNEUMONIA Diagnosis Discharge Diagnosis (1) Pneumonia due to COVID-19 virus: Status: Acute Code(s): U07.1 - COVID-19; J12.82 - Pneumonia due to coronavirus disease 2019 (2) Acute respiratory failure with hypoxia: Status: Acute Code(s): J96.01 - Acute respiratory failure with hypoxia (3) Suspected COVID-19 virus infection: Status: Acute Code(s): Z20.822 - Contact with and (suspected) exposure to COVID-19 Medications at Discharge Home Medications bisoprolol-hydrochlorothiazide 1 tab PO DAILY 03/01/21 finasteride 5 mg PO DAILY 03/01/21 lisinopril 5 mg PO DAILY 03/01/21 metformin 1,000 mg PO BID 03/01/21 rosuvastatin 10 mg PO QHS 03/01/21 tamsulosin 0.4 mg PO DAILY 03/01/21 Hospital Course Operations None Procedures None Summary of Care Provided Minutes Spent on Discharge: 45 Hospital Course: Patient is a 61-year-old male with a significant past medical history as outlined which includes hypertension and diabetes mellitus as well as a 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 He was admitted through the ED on 03/11/2021 with a complaint of progressively worsening shortness of breath for 7 days prior to admission. He had associated productive cough and fatigue as well as episodic anorexia. He denied any loss of smell or taste but admitted with fever and chills. On admission, he was saturating at 74% on room air. He had been seen at an urgent care 2 days prior to admission and diagnosed with pneumonia. He also had a Covid test done which subsequently came back positive. He was admitted about his acute hypoxic respiratory failure due to COVID-19 pneumonia. Chest ray on admission showed multilobar pneumonia and he also had elevated lactic acid. He was started on r emdesivir and Decadron as well as oxygen. Patient shortness of breath worsened to the point where he had to be put on BiPAP. He completed a course of remdesivir. His shortness of breath subsequently started improving and he was weaned off of BiPAP onto oxygen by nasal cannula. Again he was gradually weaned down to 2 L of oxygen via nasal he felt much better. He had walking pulse ox which showed that he required 4 L of oxygen. Was therefore discharged home on 03/10/2021 on 4 L of oxygen and is to follow-up with his primary care doctor within 1 week. Patient seen and examined prior to discharge. He had no complaints and is eager to be discharged home. Review of systems otherwise negative. Labs and vitals reviewed. Home medication reviewed and reconciled. Physical Exam Const alert, oriented x3 and no apparent distress General Appearance: cooperative Exam Limitations: no limitations HEENT normocephalic, head/scalp atraumatic, moist oral mucous membranes and oropharynx normal Eyes PERRL, EOMs intact bilaterally and conjunctivae normal Neck no lymphadenopathy Resp Resp Narrative: diminished breath sounds bibasally, few crackles, no wheezing. On 2L of oxygen. Cardio regular rate, regular rhythm, S1 normal heart sound, S2 normal heart sound and no murmurs GI normal to inspection, nondistended, normoactive bowel sounds, soft to palpation, non-tender and non-distended Extremity normal to inspection, full ROM and no clubbing, cyanosis or edema Skin no rashes or lesions noted Neuro oriented x3, CN's II-XII intact bilaterally and moves all extremities Sensorium / Orientation: awake and alert Psych affect normal Medical Records Data Medical Nutrition Assessment Dietitian: Malnutrition Criteria Met Start: 03/01/21 15:00 Freq: Status: Active Protocol: Document 03/01/21 15:00 RMA (Rec: 03/01/21 15:00 RMA [id number]) Nutrition Malnutrition Evidence of Malnutrition Exists Yes Malnutrition (severe): Acute Illness/Injury Evidenced By Suboptimal Energy Intake ( Severe),Weight Loss (Severe) Clinical Problem Acute Disease or Injury Related Malnutrition Etiology Severe protein-calorie malnutrition in the context of acute illness 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 Status Active Problem Recommendation Dietitian Recommendations/Changes Will change diet to 2000 calorie; consistent carbohydrate. Will d/c ensure enlive w/ medpass. Will add 120ml glucerna shake TID w/ meals. Liberalize diet and add ONS as needed to prevent further wt loss if PO does not improve at meals. Weight / BMI Weight Weight: 197 lb 12.074 oz Body Mass Index (BMI) 25.4 ABG / Lab / Microbiology Data Result Diagrams: 03/10/21 06:46 03/10/21 06:46 Laboratory: Laboratory Results - last 24 hr 03/09/21 11:56: POC Glucose 248 H 03/09/21 17:20: POC Glucose 265 H 03/09/21 22:16: POC Glucose 321 H 03/10/21 06:46: WBC 8.3, RBC 4.32 L, Hgb 13.3, Hct 39.6 L, MCV 91.7, MCH 30.8, MCHC 33.6, RDW Std Deviation 38.3, RDW Coeff of Eh 11.2 L, Plt Count 380, MPV 10.9, Immature Gran % (Auto) 2.800 H, Neut % (Auto) 67.7, Lymph % (Auto) 16.0 L, Brule % (Auto) 12.4 H, Eos % (Auto) 0.6, Baso % (Auto) 0.5, Absolute Neuts (auto) 5.6, Absolute Lymphs (auto) 1.33, Nucleated RBC % 0 03/10/21 06:46: Sodium 135 L, Potassium 4.9, Chloride 100, Carbon Dioxide 29.0, Anion Gap 6, BUN 22 H, Creatinine 0.68 L, Estim Creat Clear Calc 132.63, Est GFR (MDRD) Af Amer 153, Est GFR (MDRD) Non-Af 127, BUN/Creatinine Ratio 32.5 H, Glucose 147 H, Calcium 8.3 L, Total Bilirubin 0.60, AST 10 L, ALT 31, Alkaline Phosphatase 69, Total Protein 7.0, Albumin 2.2 L, Globulin 4.8 H, Albumin/Globulin Ratio 0.5 L 03/10/21 08:42: POC Glucose 134 H Microbiology: Microbiology 03/04/21 16:51 Blood Culture (Wb) - Anticubital Right Blood Culture - Final No growth in 5 days. 02/28/21 23:32 Blood Culture (Wb) - Left Hand Blood Culture - Final No growth in 5 days. 02/28/21 23:20 Blood Culture (Wb) - Anticubital Left Blood Culture - Final No growth in 5 days. 03/01/21 00:05 Urine, Clean Catch Urine Culture - Final Culture exhibits no growth. 03/02/21 10:52 Urine, Random Streptococcus pneumoniae Antigen (M - Final 03/02/21 10:52 Urine, Clean Catch Legionella Antigen - Final 02/28/21 23:34 Nasal Secretion SARS-CoV-2 Antigen (Rapid) - Final D/C Instructions Discharge Diet: Low fat / Low cholesterol and 1800 Calorie Control Diet Discharge Activity: Return to Normal Activity Weight Bearing Status: Weight bearing as tolerated Call your doctor if you observe: Fever of 101 or Higher, Shortness of breath, Dizziness, Swelling in the ankles, Chest pain, Increased palpitations (irregular heartbeat) and Calf discomfort Meaningful Use Info Meaningful Use Diagnoses (Choose all that apply): None applicable Discharge Plan Admission Admit Date/Time: 03/01/21 00:25 Primary Reason for Your Visit: acute hypoxic respiratory failure due to covid. Attending Provider: Gabrielle Landa Primary Care Provider: Clint Horton Consulting Providers: Matthew Xie ; Keyur Booth ; Liz Llanos [employer]ISTRATE JUDGE ; Vaibhav Reardon Discharge Orders/Prescriptions Prescriptions: Continued metformin 1,000 mg Tablet 1,000 mg PO BID RF: 0 bisoprolol-hydrochlorothiazide 5-6.25 mg tablet 1 tab PO DAILY RF: 0 tamsulosin 0.4 mg capsule 0.4 mg PO DAILY RF: 0 lisinopril 5 mg tablet 5 mg PO DAILY RF: 0 finasteride 5 mg tablet 5 mg PO DAILY RF: 0 rosuvastatin 10 mg tablet 10 mg PO QHS RF: 0 Discontinued doxycycline monohydrate 100 mg tablet 100 mg PO BID RF: 0 Referrals / Follow Up: Keyur Booth DO [STAFF PHYSICIAN] - Within 2 Weeks Clint Horton MD [Primary Care Provider] - Within 2 Weeks Disposition Disposition (needs filled in before D/C Order can be placed): Home, Self Care Charges/Coding Visit Charges Inpatient E&M: 72948 Disch Hosp
== END 2021-03-10 13:15 | disposition home or self-care (01) | DRG 177 ==
LOC: ED 23:58 → PCU 03-01 00:50
PROVIDERS: Internal Medicine; Internal Medicine Critical Care Medicine; Internal Medicine Infectious Disease; Admitting Provider Hospitalist; Emergency Provider Emergency Medicine; PCP Family Medicine; Visit Provider Student in an Organized Health Care Education/Training Program
DX: U07.1 COVID-19 (principal); J12.82 Pneumonia due to coronavirus disease 2019; J96.01 Acute respiratory failure with hypoxia; E43 Unspecified severe protein-calorie malnutrition; Z68.25 Body mass index [BMI] 25.0-25.9, adult; E78.00 Pure hypercholesterolemia, unspecified; D32.0 Benign neoplasm of cerebral meninges; E11.65 Type 2 diabetes mellitus with hyperglycemia; E78.5 Hyperlipidemia, unspecified; H91.92 Unspecified hearing loss, left ear; I10 Essential (primary) hypertension; N40.0 Benign prostatic hyperplasia without lower urinary tract symptoms; Z79.84 Long term (current) use of oral hypoglycemic drugs; Z79.899 Other long term (current) drug therapy; Z87.891 Personal history of nicotine dependence
CPT/HCPCS: 36415; 71045; 80053; 81001; 82962; 83605; 83880; 84145; 85025; 85379; 85610; 85730; 86140; 87040; 87086; 87426; 87449; 87635; 93005; 94002; 94003; 97802; 99285; 99406; J7050; U0005; A4216; J1940; U0003

== ENCOUNTER 2021-05-09 08:06 | Outpatient (CLI) | payer MEDICARE, SELFPAY ==
--- NOTE | 2021-05-09 12:11 | PFTCOMP ---
COMPLETE PULMONARY FUNCTION TEST INTERPRETATION Brief HPI: Patient is a 61 year old male, currently under the care of Liz Llanos, who presents to [facility] for complete pulmonary function tests secondary to diagnosis of dyspnea. Respiratory therapist reports good effort and reproducible results. Interpretation: Forced expiration spirometry shows no large airways obstructive ventilatory defect with an FEV1 of 67% predicted. There is no significant bronchodilator response by strict ATS criteria. Spirograms are of good quality and plateau normally. The respiratory flow volume loop shows a normal pattern. Lung volumes by body plethysmography show a decreased total lung capacity at 4.63 L, 61% predicted. All other lung volumes are reduced symmetrically. Diffusion capacity by carbon monoxide is decreased at 60% predicted. The airway resistance is slightly elevated. No previous pulmonary function tests were available for review. Impression: Moderate restrictive ventilatory defect with a symmetric reduction diffusion capacity
== END 2021-05-09 23:59 | disposition home or self-care (01) ==
PROVIDERS: PCP Family Medicine; Referring Provider Nurse Practitioner Acute Care; Visit Provider Nurse Practitioner Acute Care
DX: J96.00 Acute respiratory failure, unspecified whether with hypoxia or hypercapnia (principal); U07.1 COVID-19
CPT/HCPCS: 94060; 94726; 94729

== ENCOUNTER 2021-05-11 12:31 | Outpatient (CLI) | payer MEDICARE, SELFPAY ==
[2021-05-11 14:05] VITALS: PULSE 101; PULSE 102; PULSE 103; PULSE 106; PULSE 107; PULSE 87; PULSE 90; PULSE 99; O2SAT 89; O2SAT 90; O2SAT 92; O2SAT 95; O2SAT 96
--- NOTE | 2021-05-11 14:08 | CPS ---
HAS NOT WORN HIS O2 FOR 4 DAYS.
--- NOTE | 2021-05-11 14:27 | WT_ITS ---
PSN 6 Minute Walk Test 6 Minute Walk Test 6 Minute Walk Test: 6 Minute Walk Test PSN:6-Minute Walk Test Start: 05/11/21 14:04 Freq: Status: Active Protocol: [id number].6MINW Document 05/11/21 14:05 FR (Rec: 05/11/21 14:11 FR [id number]) 6 Minute Walk Test Date Performed 05/11/21 Time Performed 12:30 Height 6 ft 2 in Weight: 92.986 kg Weight in Pounds 205.[address]: SAPNA/LEANA Assistive device used: None Pre-test Oxygen Delivery Method Room Air Pulse Ox (%) 96 Pulse Rate (60-100 beats/min) 87 Dyspnea Joyce Scale (0-10) 3 Exertion Joyce Scale (6-20) 8 1st minute Oxygen Delivery Method Room Air Pulse Ox (%) 96 Pulse Rate (60-100 beats/min) 99 2nd minute Oxygen Delivery Method Room Air Pulse Ox (%) 92 Pulse Rate (60-100 beats/min) 102 H 3rd minute Oxygen Delivery Method Room Air Pulse Ox (%) 92 Pulse Rate (60-100 beats/min) 101 H 4th minute Oxygen Delivery Method Room Air Pulse Ox (%) 89 Pulse Rate (60-100 beats/min) 103 H Reported Symptoms Increased Work of Breathing 5th minute Oxygen Delivery Method Room Air Pulse Ox (%) 96 Pulse Rate (60-100 beats/min) 106 H 6th minute Oxygen Delivery Method Room Air Pulse Ox (%) 90 Pulse Rate (60-100 beats/min) 107 H Dyspnea Joyce Scale (0-10) 4 Exertion Joyce Scale (6-20) 10 Reported Symptoms Increased Work of Breathing Post-test Oxygen Delivery Method Room Air Pulse Ox (%) 95 Pulse Rate (60-100 beats/min) 90 Full Laps Walked 22 Partial Lap, Number of Tiles Walked 18 Total Distance Walked (ft) 1316 05/11/21 14:08 Cardiopulmonary Services by Solange Argueta HAS NOT WORN HIS O2 FOR 4 DAYS. Initialized on 05/11/21 14:08 - END OF NOTE Interpretation Interpretation: The patient was able to ambulate 1316 feet over the course of 6 minutes on room air with no assistive devices or breaks. The patient did experience significant desaturation from a baseline of 96% to as low as 89% with some reflexive tachycardia with a peak heart rate of 107 bpm. These findings are consistent with a respiratory limitation exercise tolerance. Recommendations Recommendations: No supplemental oxygen is indicated at this time. However, patient will need to be followed closely given level of desaturation
== END 2021-05-11 23:59 | disposition home or self-care (01) ==
LOC: PSN 12:32
PROVIDERS: PCP Family Medicine; Referring Provider Nurse Practitioner Acute Care; Visit Provider Nurse Practitioner Acute Care
DX: J96.00 Acute respiratory failure, unspecified whether with hypoxia or hypercapnia (principal); U07.1 COVID-19
CPT/HCPCS: 94618